=== PATIENT | female | born 1940 | race Caucasian/White ===

== ENCOUNTER 2017-11-14 11:05 | Emergency (ER) | payer MEDICARE, OTHER, SELFPAY ==
[2017-11-14 11:20] VITALS: BP 136/82; PULSE 80; RESP 18; TEMP 36.1; O2SAT 98; BMI 34.8
--- NOTE | 2017-11-14 11:43 | ED_ITS ---
HPI - Weakness General Chief complaint: Weakness Stated complaint: BACK PAIN, NAUSEA, EXHAUSTED Time Seen by Provider: 11/14/17 11:11 Source: patient Mode of arrival: ambulatory Limitations: no limitations History of Present Illness HPI Narrative: 77-year-old female who is in the area for a summer vacation here for evaluation of approximately 5 weeks of weakness and occasional bilateral upper back pain. Patient does have a history of breast cancer. Is not currently under chemotherapy or radiation. Has had a double mastectomy and a right-sided lymph node removal. She states that her last chemotherapy was several years ago. She states that she was also just recently diagnosed with melanoma on her right back. She states she has felt weak and fatigued in this occasional back pain for several weeks now. She states that she contacted her oncologist back in [place] who informed her that she could return back to [place] for evaluation or go to the emergency department here in the local area. Patient does not have an oncologist or a primary doctor in the local area. Related Data Home Medications Medication Instructions Recorded Confirmed alprazolam 1 dose PO DIRECTED 11/14/17 11/14/17 atorvastatin 20 mg PO DAILY 11/14/17 11/14/17 fluticasone-salmeterol [Advair 1 puff INHALATION BID 11/14/17 11/14/17 Diskus] levothyroxine 1 tab PO DAILY 11/14/17 11/14/17 pantoprazole 40 mg PO DAILY 11/14/17 11/14/17 theophylline 1 tab PO DAILY 11/14/17 11/14/17 Allergies Allergy/AdvReac Type Severity Reaction Status Date / Time No Known Drug Allergies Allergy Verified 11/14/17 11:20 Review of Systems Constitutional Denies chills, Reports fatigue, Denies fever(s), Denies headache(s), Reports lethargy, Reports malaise and Denies weakness ENT Ears, Nose, Mouth, and Throat: Denies vertigo, Denies dizziness, Denies headache (s) and Denies disequilibrium Cardiovascular Denies chest pain, Denies syncope, Denies dyspnea and Denies dyspnea on exertion Respiratory Denies chest congestion, Denies cough, Denies pain with cough, Denies dyspnea, Denies dyspnea on exertion and Denies wheezing Gastrointestinal Gastrointestinal: Denies constipation, Denies diarrhea, Denies nausea and Denies vomiting Genitourinary Denies dysuria Musculoskeletal Denies abnormal gait and Denies tingling Comments: Bilateral mid back pain that has occasional Integumentary/Breasts Denies lesions, Denies rash and Denies wounds Neurologic Denies abnormal gait, Denies behavioral changes, Denies confusion, Denies vertigo, Denies dizziness, Denies syncope, Denies headache(s), Denies sensory deficit, Denies tingling, Denies disequilibrium and Denies weakness Psychiatric Denies behavioral changes and Denies confusion Endocrine Reports fatigue Hematologic/Lymphatic Denies easy bleeding and Denies easy bruising Allergic/Immunologic Denies wheezing Exam Initial Vital Signs Initial Vital Signs: Vital Signs Temperature 97.0 F L 11/14/17 11:20 Pulse Rate 80 11/14/17 11:20 Respiratory Rate 18 11/14/17 11:20 Blood Pressure 136/82 H 11/14/17 11:20 Pulse Oximetry 98 11/14/17 11:20 Const General: cooperative, healthy appearing, comfortable, well developed, well groomed and No acute distress Orientation: alert, awake and oriented x3 [facility] Head: normal to inspection Ears: hearing grossly normal bilaterally Nose: external nose normal Resp Effort & Inspection: normal respiratory effort Auscultation: clear to auscultation bilaterally Cardio Rate: regular rate Rhythm: regular rhythm Back/Spine/Pelvis Other: Patient has no tenderness to her upper back today at the time of my exam. She states that it is occasional. Skin Lesions: no lesions Rashes: no rashes Neuro General: alert, awake and oriented x3 Cognition: normal cognition Speech: speech normal Gait: normal gait Motor: muscle tone normal throughout Sensory Exam: no sensory deficits noted Extrem General: normal to inspection and capillary refill normal Course Vital Signs - 8 hr 11/14/17 11:20 11/14/17 12:55 11/14/17 13:22 Temperature 97.0 F L Pulse Rate 80 56 L 55 L Respiratory Rate 18 18 16 Blood Pressure 136/82 H 128/60 H Blood Pressure [Left Arm] 140/62 H Pulse Oximetry 98 95 97 MDM - Weakness ECG Data Attestation: I personally reviewed and interpreted this ECG as follows: Prior ECG tracings: not available for review Interpretation: Sinus rhythm Ventricular rate is 61 Right bundle branch block Normal axis QRS 129 milliseconds Normal QTC No ST T wave changes MDM Narrative Medical decision making narrative: Had a long discussion with the patient and her who is at bedside regarding her symptoms. We did discuss that secondary to her history of breast cancer that she is at risk for recurrence of this and also metastasis. We did discuss that her back pain could be a sign of this finding. She denies any trauma. She has no skin changes that are consistent with zoster. No respiratory distress. Weight a long discussion regarding options that she had to include obtaining a CT scan here in the emergency department to evaluate for any lytic lesions or fractures which I feel is under likely in her situation. We also discussed that the better test would be either an MRI or a PET scan. We did discuss that unfortunately these test cannot be ordered out of the emergency department secondary to follow-up issues. I once again offered a CT scan for evaluation however after these discussion the patient opted to try the meloxicam that she had at home state this does not improve her symptoms. She also stated that she would contact her primary doctor and her oncologist in [place] to see if she could get testing set up while she is in the local area. She states she will be here for the next month or so. She was instructed that she could return to the emergency department any time for further evaluation treatment. Discharge Plan Departure Patient Disposition: Home, Self-Care Clinical Impression: Back pain, thoracic Discharge Date/Time: 11/14/17 13:25 Interventions: ED Discharge Assessment Last Done: 11/14/17 13:22 Instructions: DI for Thoracic Back Pain Activity Restrictions/Additional Instructions: We opted not to do a CT scan today. You do need to contact your primary doctor and your oncologist back in [place] to discuss further evaluation of your pain. I would recommend that you take the Mobic like we discussed. You may return to the emergency department at any time for new or worsening symptoms Prescriptions: No Action atorvastatin 20 mg tablet 20 mg PO DAILY RF: 0 theophylline 400 mg tablet extended release 24 hr 1 tab PO DAILY RF: 0 alprazolam 0.5 mg tablet 1 dose PO DIRECTED RF: 0 pantoprazole 40 mg tablet,delayed release (DR/EC) 40 mg PO DAILY RF: 0 levothyroxine 125 mcg tablet 1 tab PO DAILY RF: 0 fluticasone-salmeterol [Advair Diskus] 500-50 mcg/dose blister with device 1 puff Inhalation BID RF: 0
[2017-11-14 12:55] VITALS: BP 140/62; PULSE 56; RESP 18; O2SAT 95
[2017-11-14 13:22] VITALS: BP 128/60; PULSE 55; RESP 16; O2SAT 97
== END 2017-11-14 13:25 | disposition home or self-care (01) ==
PROVIDERS: Emergency Provider Emergency Medicine; Family Provider Internal Medicine Medical Oncology; PCP Internal Medicine Medical Oncology
DX: M54.6 Pain in thoracic spine (principal)
CPT/HCPCS: 81003; 93005; 99282; 99283

== ENCOUNTER → 2017-12-06 12:50 | Outpatient (CLI) | payer MEDICARE, OTHER, SELFPAY ==
--- NOTE | 2017-12-06 12:52 | DI.RAD.S_ITS ---
PROCEDURE: XR CHEST 2V INDICATIONS: shortness of breath TECHNIQUE: 2 views of the chest were acquired. COMPARISON: None. FINDINGS: Surgical changes and devices: None. Lungs and pleura: No pleural effusions or pneumothorax. Lungs are clear. Mediastinum: Mediastinal contours are normal. Heart size is normal. Bones and chest wall: No suspicious bony abnormalities. Soft tissues appear unremarkable. IMPRESSION: No acute process. Dictated by: Safia Washington M.D. on 12/06/2017 at 13:36 Approved by: Safia Washington M.D. on 12/06/2017 at 13:37
== END ==
PROVIDERS: Family Provider Internal Medicine Medical Oncology; PCP Internal Medicine Medical Oncology; Visit Provider Physician Assistant
DX: R06.02 Shortness of breath (principal); R06.2 Wheezing
CPT/HCPCS: 71046

== ENCOUNTER 2017-12-19 10:30 | Outpatient (RCR) | payer MEDICARE, OTHER, SELFPAY ==
--- NOTE | 2017-10-04 16:36 | PT.OIE ---
Current Diagnoses Lymphedema, not elsewhere classified (10/04/17) Stiffness of right shoulder, not elsewhere classified (10/04/17) Postural kyphosis, cervicothoracic region (10/04/17) Provider Visit Care Team Role Provider Type Amanda Mary MD Attending Provider Non-Staff Family Provider Primary Care Provider Specialty: Internal Medicine Address: [address] [place] [address], [id number] Email: Physical Therapy Initial Evaluation PT-OP-A Visit Information Start: 10/04/17 08:09 Freq: Status: Active Protocol: Document 10/04/17 15:57 SAK (Rec: 10/04/17 16:00 SAK [id number]) Out-Patient Physical Therapy Visit Information Visit Information Visit Type Initial Evaluation Visit Start Time 14:30 Visit Stop Time 15:45 Total Visit Minutes 75 Visit Number 06/10 Number of MACHINE CARTON MARKER Visits 0 Evaluation Information Evaluation Date 10/04/17 PT-OP-B Current Condition Start: 10/04/17 08:09 Freq: Status: Active Protocol: Document 10/04/17 14:30 SAK (Rec: 10/04/17 16:34 SAK [id number]) Current Condition History of Current Condition Onset Date 15 years Current Complaints exacerbation of lymphedema right UE History of Current Condition Patient 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 Reports gradual onset of lymphedema at that time, has had PT intervention in the past. Has compression sleeve for right. States she feels over the past year and most especially the past few days her right UE edema has increased significantly, UE feels very heavy making it even harder to use. No trauma or infection. Treatment Goals Patient/Caregiver Goals Decrease lymphedema to stable level, allow her to resume wearing usual compression sleeve without need for wrapping Prior Functional Status Baseline Function- ADL's Independent Baseline Function- Mobility Independent Current Functional Impairments (Reported) Functional Limitations- ADL's difficulty lifting UE overhead and behind her back, UE very heavy. Functional Limitations- Work/School doing less around the house. PT-OP-C Subjective Start: 10/04/17 08:09 Freq: Status: Active Protocol: Document 10/04/17 14:30 SAK (Rec: 10/04/17 16:34 SAK [id number]) Patient Questionnaires Lymphedema Life Impact Score Lymphedema Impairment 40 to 59% Impaired (Score 47- 60) OP-PT Pain Assessment Pain Assessment Grid Paper Pain Assessment Grid Completed Yes: no pain PT-OP-E Functional Tests Start: 10/04/17 08:09 Freq: Status: Active Protocol: Document 10/04/17 14:30 [facility] (Rec: 10/04/17 16:34 [facility] [id number]) Functional Tests Apley's Scratch Test Action 1: The subject is instructed to touch the opposite shoulder with his/her hand. This motion checks Glenohumeral adduction, internal rotation , horizontal adduction and scapular protraction Action 2: The subject is instructed to place his/her arm overhead and reach behind the neck to touch his/her upper back. This motion checks Glenohumeral abduction, external rotation and scapular upward rotation and elevation. Action 3: The subject puts his/her hand on the lower back and reaches upward as far as possible. This motion checks glenohumeral adduction, internal rotation and scapular retraction with downward rotation Action 1- Left behind shoulder Action 1- Right top of shoulder Action 2- Left T2 Action 2- Right C4 Action 3- Left T4 Action 3- Right T10 PT-OP-F Manual Assessment Start: 10/04/17 08:09 Freq: Status: Active Protocol: Document 10/04/17 14:30 [facility] (Rec: 10/04/17 16:34 [facility] [id number]) Manual Assessments Soft Tissue Assessment Soft Tissue Mobility Assessment Decreased soft tissue mobility of pec major and minor, lats on right PT-OP-J Posture/Palpation/Skin Start: 10/04/17 08:09 Freq: Status: Active Protocol: Document 10/04/17 14:30 [facility] (Rec: 10/04/17 16:34 [facility] [id number]) Skin Assessment Edema Assessment Right Arm Edema Degree 4+ Query Text:1+ Trace, Barely Detectable, Rebound Immediate 2+ Moderate, Slight Indentation, Rebound a few seconds 3+ Deep, Deeper Indentation, Rebound 10- 12 seconds 4+ Very Deep, Rebound > 20 seconds Edema Appearance Taut PT-OP-K Range of Motion Start: 10/04/17 08:09 Freq: Status: Active Protocol: Document 10/04/17 14:30 [facility] (Rec: 10/04/17 16:34 [facility] [id number]) Shoulder Goniometric Range of Motion Shoulder Measured in Degrees Right Flexion 135 Abduction 120 Left Flexion 165 Abduction 160 Shoulder ROM Limitations Shoulder ROM Limitations Soft Tissue Tightness Comments weight of right UE also limits elevation PT-OP-N Lymphedema Start: 10/04/17 08:09 Freq: Status: Active Protocol: Document 10/04/17 14:30 [facility] (Rec: 10/04/17 16:34 [facility] [id number]) Lymphedema Measurements Upper Extremity Circumference Measurements Left MCP 21.3 cm Wrist 18.4 cm 10 cm From Distal Crease 21.3 cm 20 cm From Distal Crease 27.7 cm 30 cm From Distal Crease 30.6 cm 40 cm From Distal Crease 38.1 cm 45 cm From Distal Crease 42.1 cm Right MCP 22.1 cm Wrist 18.4 cm 10 cm From Distal Crease 31.1 cm 20 cm From Distal Crease 34.3 cm 30 cm From Distal Crease 43.2 cm 40 cm From Distal Crease 41.3 cm 45 cm From Distal Crease 48.5 cm PT-OP-Q Treatments Start: 10/04/17 08:09 Freq: Status: Active Protocol: Document 10/04/17 14:30 [facility] (Rec: 10/04/17 16:34 [facility] [id number]) Cardio Equipment Upper Body Ergometer (UBE) Duration (Minutes) 5 RPM 120 Other forward,bckward; after lymphedema wrapping to facilitate lymph drainage Therapeutic Exercises Sidelying Exercises 1 Sidelying Exercise Name reach and roll Side bilateral Reps/Minutes 5 Self-Care/Home Management Treatment Education Patient Education Home Exercise Program Lymphedema Treatment Manual Lymphatic Drainage Location right UE Duration 20 Comments supine and s/l Sequential Lymphedema Exercises Location right UE Comments verbal review with instruction to perform sequential prox to distal, then distal to proximal (reports has never been told to do it this way) Patient Education Self Manual Lymphatic Drainage review Sequential Lymphedema Exercises review PT-OP-T Assessment and Plan Start: 10/04/17 08:09 Freq: Status: Active Protocol: Document 10/04/17 14:30 [facility] (Rec: 10/04/17 16:34 [facility] [id number]) Physical Therapy Assessment Rehab Potential Rehabilitation Potential Good Evaluation Complexity Number of Personal Factors/Comorbidities 3 or More Number of Body Systems Impaired 3 Clinical Presentation at Evaluation Unstable Impairments Impairments Edema Functional Activities Soft Tissue Mobility Goals Four Impairment edema Short Term Goal (STG) pneumatic pump trial STG Duration 6 wks Alf Goal (LTG) Patient to consider obtaining pneumatic pump such as Flexitouch for home lymphedema management if pump trial helpful Three Impairment soft tissue mobility Short Term Goal (STG) Improve mobility and flexibility of pec major and minor and latissiumus dorsi right to allow improved lymphatic flow STG Duration 6 wks Alf Goal (LTG) Patient to be independent with updated HEP for purposes of of flexibility and soft tissue mobility Two Impairment range of motion Short Term Goal (STG) Improve right shoulder flex to 145 and abd to 140 STG Duration 6 wks Alf Goal (LTG) Patient to resume ability to reach fully overhead and behind her back for purposes of ADL's and usual activities. One Impairment edema Short Term Goal (STG) Decrease edema sufficient to allow patient to resume wearing her current compression garment consistently without difficulty STG Duration 6 wks Domestic Violence Advocate Goal (LTG) Patient to demonstrate independence with self MLD, sequential lymphedema exercises, and have appropriate fitting compression garments for long- term lymphedema management. LTG Duration 12 wks Assessment Summary Assessment Patient presents with exacerbation of lymphedema over past year, worst over past 3 days. No signs or symptoms of infection. May be at least partially due to lower activity level and worsening of postural alignment due to recent medical issues. Would benefit from PT to address PT for lymphedema management as outlined in goals to decrease her edema, improve her ability to perform ADL's and improve her overall quality of life. Physical Therapy Plan Frequency and Duration Frequency of Treatment 2x/Week Duration of Treatment 12 wks Plan of Care Start Date 10/04/17 Plan of Care End Date 01/01/18 Therapeutic Interventions Therapeutic Interventions Aquatic Therapy Home Exercise Program Lymphedema Management Manual Therapy Self-Care/Home Management Therapeutic Exercises Next Visit Focus/Plan Next Visit Plan MLD, compression wrapping, further exercise progression including addition of pulleys for shoulder ROM. Provider Signature Date
--- NOTE | 2017-10-11 16:39 | PT.OTN ---
Current Diagnoses Lymphedema, not elsewhere classified (10/11/17) Stiffness of right shoulder, not elsewhere classified (10/11/17) Physical Therapy Treatment Note PT-OP-A Visit Information Start: 10/04/17 08:09 Freq: Status: Active Protocol: Document 10/11/17 14:30 SAK (Rec: 10/11/17 16:39 SAK [id number]) Out-Patient Physical Therapy Visit Information Visit Information Visit Type Treatment Note Visit Start Time 14:30 Visit Stop Time 15:50 Total Visit Minutes 80 Visit Number 2/ Number of INSTITUTION LIBRARIAN Visits 0 Evaluation Information Evaluation Date 10/04/17 PT-OP-B Current Condition Start: 10/04/17 08:09 Freq: Status: Active Protocol: Document 10/04/17 14:30 SAK (Rec: 10/04/17 16:34 SAK [id number]) Current Condition History of Current Condition Onset Date 15 years Current Complaints exacerbation of lymphedema right UE History of Current Condition Patient 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 Reports gradual onset of lymphedema at that time, has had PT intervention in the past. Has compression sleeve for right. States she feels over the past year and most especially the past few days her right UE edema has increased significantly, UE feels very heavy making it even harder to use. No trauma or infection. Treatment Goals Patient/Caregiver Goals Decrease lymphedema to stable level, allow her to resume wearing usual compression sleeve without need for wrapping Prior Functional Status Baseline Function- ADL's Independent Baseline Function- Mobility Independent Current Functional Impairments (Reported) Functional Limitations- ADL's difficulty lifting UE overhead and behind her back, UE very heavy. Functional Limitations- Work/School doing less around the house. PT-OP-C Subjective Start: 10/04/17 08:09 Freq: Status: Active Protocol: Document 10/11/17 14:30 SAK (Rec: 10/11/17 16:37 SAK [id number]) OP-PT Subjective Patient Comments Patient Comments Reports very pleased with results following first treatment; wore compression wrap for 4 days then resumed wearing compression sleeve. States she felt edema was decreased a lot with compression wrap, has increased some since but still better. PT-OP-E Functional Tests Start: 10/04/17 08:09 Freq: Status: Active Protocol: Document 10/04/17 14:30 [facility] (Rec: 10/04/17 16:34 [facility] [id number]) Functional Tests Apley's Scratch Test Action 1: The subject is instructed to touch the opposite shoulder with his/her hand. This motion checks Glenohumeral adduction, internal rotation , horizontal adduction and scapular protraction Action 2: The subject is instructed to place his/her arm overhead and reach behind the neck to touch his/her upper back. This motion checks Glenohumeral abduction, external rotation and scapular upward rotation and elevation. Action 3: The subject puts his/her hand on the lower back and reaches upward as far as possible. This motion checks glenohumeral adduction, internal rotation and scapular retraction with downward rotation Action 1- Left behind shoulder Action 1- Right top of shoulder Action 2- Left T2 Action 2- Right C4 Action 3- Left T4 Action 3- Right T10 PT-OP-F Manual Assessment Start: 10/04/17 08:09 Freq: Status: Active Protocol: Document 10/04/17 14:30 [facility] (Rec: 10/04/17 16:34 [facility] [id number]) Manual Assessments Soft Tissue Assessment Soft Tissue Mobility Assessment Decreased soft tissue mobility of pec major and minor, lats on right PT-OP-J Posture/Palpation/Skin Start: 10/04/17 08:09 Freq: Status: Active Protocol: Document 10/04/17 14:30 [facility] (Rec: 10/04/17 16:34 [facility] [id number]) Skin Assessment Edema Assessment Right Arm Edema Degree 4+ Query Text:1+ Trace, Barely Detectable, Rebound Immediate 2+ Moderate, Slight Indentation, Rebound a few seconds 3+ Deep, Deeper Indentation, Rebound 10- 12 seconds 4+ Very Deep, Rebound > 20 seconds Edema Appearance Taut PT-OP-K Range of Motion Start: 10/04/17 08:09 Freq: Status: Active Protocol: Document 10/04/17 14:30 [facility] (Rec: 10/04/17 16:34 [facility] [id number]) Shoulder Goniometric Range of Motion Shoulder Measured in Degrees Right Flexion 135 Abduction 120 Left Flexion 165 Abduction 160 Shoulder ROM Limitations Shoulder ROM Limitations Soft Tissue Tightness Comments weight of right UE also limits elevation PT-OP-N Lymphedema Start: 10/04/17 08:09 Freq: Status: Active Protocol: Document 10/11/17 14:30 [facility] (Rec: 10/11/17 16:37 [facility] [id number]) Lymphedema Measurements Upper Extremity Circumference Measurements Right MCP 22.1 cm Wrist 18.5 cm 10 cm From Distal Crease 24.5 cm 20 cm From Distal Crease 31.7 cm 30 cm From Distal Crease 42 cm 40 cm From Distal Crease 41.3 cm 45 cm From Distal Crease 44 cm PT-OP-Q Treatments Start: 10/04/17 08:09 Freq: Status: Active Protocol: Document 10/11/17 14:30 [facility] (Rec: 10/11/17 16:37 [facility] [id number]) Cardio Equipment Recumbent Elliptical (RIVS) Duration (Minutes) 10 Resistance 1 Other to facilitate lymphatic flow after compression wrapping Manual Therapy Treatment Other Other Manual Treatments circumferential measurements and discussion of results 10min Lymphedema Treatment Manual Lymphatic Drainage Location right UE Duration 60 Comments supine and s/l. Seated compression wrapping with Artiflex and Comprilan hand to axilla. PT-OP-T Assessment and Plan Start: 10/04/17 08:09 Freq: Status: Active Protocol: Document 10/11/17 14:30 [facility] (Rec: 10/11/17 16:37 [facility] [id number]) Physical Therapy Assessment Assessment Summary Assessment Excellent progress with decrease in circumferential measurements from ( see measurements). Patient highly compliant with HEP and wearing compression garment. Physical Therapy Plan Frequency and Duration Frequency of Treatment 2x/Week Duration of Treatment 12 wks Plan of Care Start Date 10/04/17 Plan of Care End Date 01/01/18 Therapeutic Interventions Therapeutic Interventions Aquatic Therapy Home Exercise Program Lymphedema Management Manual Therapy Self-Care/Home Management Therapeutic Exercises Next Visit Focus/Plan Next Visit Plan MLD, compression wrapping, further exercise progression including addition of pulleys for shoulder ROM. Please Sign and Return: I have reviewed this Plan of Care and certify that the skilled therapy services above are required to meet the patient???s needs. Physician Signature Date Printed Name and Credentials Clinical Instructor Signature Printed Name and Credentials
--- NOTE | 2017-12-12 11:41 | PT.OTN ---
Current Diagnoses Lymphedema, not elsewhere classified (12/12/17) Stiffness of right shoulder, not elsewhere classified (12/12/17) Physical Therapy Treatment Note PT-OP-A Visit Information Start: 10/04/17 08:09 Freq: Status: Active Protocol: Document 12/12/17 11:32 SAK (Rec: 12/12/17 11:40 SAK [id number]) Out-Patient Physical Therapy Visit Information Visit Information Visit Type Treatment Note Visit Start Time 10:30 Visit Stop Time 11:30 Total Visit Minutes 60 Visit Number 08/08 Number of REPTILE FARMER Visits 0 Evaluation Information Evaluation Date 10/04/17 PT-OP-B Current Condition Start: 10/04/17 08:09 Freq: Status: Active Protocol: Document 10/04/17 14:30 SAK (Rec: 10/04/17 16:34 SAK [id number]) Current Condition History of Current Condition Onset Date 15 years Current Complaints exacerbation of lymphedema right UE History of Current Condition Patient 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 Reports gradual onset of lymphedema at that time, has had PT intervention in the past. Has compression sleeve for right. States she feels over the past year and most especially the past few days her right UE edema has increased significantly, UE feels very heavy making it even harder to use. No trauma or infection. Treatment Goals Patient/Caregiver Goals Decrease lymphedema to stable level, allow her to resume wearing usual compression sleeve without need for wrapping Prior Functional Status Baseline Function- ADL's Independent Baseline Function- Mobility Independent Current Functional Impairments (Reported) Functional Limitations- ADL's difficulty lifting UE overhead and behind her back, UE very heavy. Functional Limitations- Work/School doing less around the house. PT-OP-C Subjective Start: 10/04/17 08:09 Freq: Status: Active Protocol: Document 12/12/17 11:32 SAK (Rec: 12/12/17 11:40 [facility] [id number]) OP-PT Subjective Patient Comments Patient Comments Patient reports she has been ill for a few weeks. Also was diagnosed with melanoma and had it removed off of her back ; no further treatment at this time. Has worked really hard on decreasing the salt in her diet and has found that it helps with her arm as well. Patient Reported Progress Improving PT-OP-E Functional Tests Start: 10/04/17 08:09 Freq: Status: Active Protocol: Document 10/04/17 14:30 [facility] (Rec: 10/04/17 16:34 [facility] [id number]) Functional Tests Apley's Scratch Test Action 1: The subject is instructed to touch the opposite shoulder with his/her hand. This motion checks Glenohumeral adduction, internal rotation , horizontal adduction and scapular protraction Action 2: The subject is instructed to place his/her arm overhead and reach behind the neck to touch his/her upper back. This motion checks Glenohumeral abduction, external rotation and scapular upward rotation and elevation. Action 3: The subject puts his/her hand on the lower back and reaches upward as far as possible. This motion checks glenohumeral adduction, internal rotation and scapular retraction with downward rotation Action 1- Left behind shoulder Action 1- Right top of shoulder Action 2- Left T2 Action 2- Right C4 Action 3- Left T4 Action 3- Right T10 PT-OP-F Manual Assessment Start: 10/04/17 08:09 Freq: Status: Active Protocol: Document 10/04/17 14:30 [facility] (Rec: 10/04/17 16:34 [facility] [id number]) Manual Assessments Soft Tissue Assessment Soft Tissue Mobility Assessment Decreased soft tissue mobility of pec major and minor, lats on right PT-OP-J Posture/Palpation/Skin Start: 10/04/17 08:09 Freq: Status: Active Protocol: Document 10/04/17 14:30 [facility] (Rec: 10/04/17 16:34 [facility] [id number]) Skin Assessment Edema Assessment Right Arm Edema Degree 4+ Edema Appearance Taut PT-OP-K Range of Motion Start: 10/04/17 08:09 Freq: Status: Active Protocol: Document 10/04/17 14:30 [facility] (Rec: 10/04/17 16:34 [facility] [id number]) Shoulder Goniometric Range of Motion Shoulder Measured in Degrees Right Flexion 135 Abduction 120 Left Flexion 165 Abduction 160 Shoulder ROM Limitations Shoulder ROM Limitations Soft Tissue Tightness Comments weight of right UE also limits elevation PT-OP-N Lymphedema Start: 10/04/17 08:09 Freq: Status: Active Protocol: Document 12/12/17 11:32 SAK (Rec: 12/12/17 11:40 [facility] [id number]) Lymphedema Measurements Upper Extremity Circumference Measurements Right MCP 21.1 cm Wrist 17.9 cm 10 cm From Distal Crease 24.3 cm 20 cm From Distal Crease 31.5 cm 30 cm From Distal Crease 39.5 cm 40 cm From Distal Crease 41 cm 45 cm From Distal Crease 43.6 cm PT-OP-Q Treatments Start: 10/04/17 08:09 Freq: Status: Active Protocol: Document 12/12/17 11:32 [facility] (Rec: 12/12/17 11:40 [facility] [id number]) Lymphedema Treatment Manual Lymphatic Drainage Location right UE Duration 60 Comments supine and s/l. Seated compression wrapping with BiaSoft extremity padding and Comprilan hand to axilla. PT-OP-T Assessment and Plan Start: 10/04/17 08:09 Freq: Status: Active Protocol: Document 12/12/17 11:32 [facility] (Rec: 12/12/17 11:40 [facility] [id number]) Physical Therapy Assessment Goals Four Impairment edema Short Term Goal (STG) pneumatic pump trial STG Duration 6 wks Power Plant Installer Goal (LTG) Patient to consider obtaining pneumatic pump such as Flexitouch for home lymphedema management if pump trial helpful Three Impairment soft tissue mobility Short Term Goal (STG) Improve mobility and flexibility of pec major and minor and latissiumus dorsi right to allow improved lymphatic flow STG Duration 6 wks Half-Way Goal (LTG) Patient to be independent with updated HEP for purposes of of flexibility and soft tissue mobility Two Impairment range of motion Short Term Goal (STG) Improve right shoulder flex to 145 and abd to 140 STG Duration 6 wks Power Plant Installer Goal (LTG) Patient to resume ability to reach fully overhead and behind her back for purposes of ADL's and usual activities. One Impairment edema Short Term Goal (STG) Decrease edema sufficient to allow patient to resume wearing her current compression garment consistently without difficulty STG Duration 6 wks Half-Way Goal (LTG) Patient to demonstrate independence with self MLD, sequential lymphedema exercises, and have appropriate fitting compression garments for long- term lymphedema management. LTG Duration 12 wks Progress Towards Goals Progress Towards Goals Progressing Toward Goals Progress Comments No ther ex today due to physician recommendation after melanoma removal. Assessment Summary Assessment continues to progress with decrease in circumferential measurements. Physical Therapy Plan Therapeutic Interventions Therapeutic Interventions Aquatic Therapy Home Exercise Program Lymphedema Management Manual Therapy Self-Care/Home Management Therapeutic Exercises Next Visit Focus/Plan Next Visit Plan Anticipating 1 further PT visit due to feeling patient stabilizing; will discuss at next session if we feel further visits indicated.
--- NOTE | 2017-12-15 12:34 | PT.OTN ---
Current Diagnoses Lymphedema, not elsewhere classified (12/15/17) Stiffness of right shoulder, not elsewhere classified (12/15/17) Physical Therapy Treatment Note PT-OP-A Visit Information Start: 10/04/17 08:09 Freq: Status: Active Protocol: Document 12/15/17 12:28 GGD (Rec: 12/15/17 12:33 GGD [id number]) Out-Patient Physical Therapy Visit Information Visit Information Visit Type Treatment Note Visit Start Time 11:15 Visit Stop Time 12:15 Total Visit Minutes 60 Visit Number 09/08 Number of SCHOOL EXAMINER Visits 1 Evaluation Information Evaluation Date 10/04/17 PT-OP-B Current Condition Start: 10/04/17 08:09 Freq: Status: Active Protocol: Document 10/04/17 14:30 SAK (Rec: 10/04/17 16:34 SAK [id number]) Current Condition History of Current Condition Onset Date 15 years Current Complaints exacerbation of lymphedema right UE History of Current Condition Patient 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 Reports gradual onset of lymphedema at that time, has had PT intervention in the past. Has compression sleeve for right. States she feels over the past year and most especially the past few days her right UE edema has increased significantly, UE feels very heavy making it even harder to use. No trauma or infection. Treatment Goals Patient/Caregiver Goals Decrease lymphedema to stable level, allow her to resume wearing usual compression sleeve without need for wrapping Prior Functional Status Baseline Function- ADL's Independent Baseline Function- Mobility Independent Current Functional Impairments (Reported) Functional Limitations- ADL's difficulty lifting UE overhead and behind her back, UE very heavy. Functional Limitations- Work/School doing less around the house. PT-OP-C Subjective Start: 10/04/17 08:09 Freq: Status: Active Protocol: Document 12/15/17 12:28 GGD (Rec: 12/15/17 12:33 GGD [id number]) OP-PT Subjective Patient Comments Patient Comments Pt states she feels she doing better overall. PT-OP-E Functional Tests Start: 10/04/17 08:09 Freq: Status: Active Protocol: Document 10/04/17 14:30 SAK (Rec: 10/04/17 16:34 SAK [id number]) Functional Tests Apley's Scratch Test Action 1: The subject is instructed to touch the opposite shoulder with his/her hand. This motion checks Glenohumeral adduction, internal rotation , horizontal adduction and scapular protraction Action 2: The subject is instructed to place his/her arm overhead and reach behind the neck to touch his/her upper back. This motion checks Glenohumeral abduction, external rotation and scapular upward rotation and elevation. Action 3: The subject puts his/her hand on the lower back and reaches upward as far as possible. This motion checks glenohumeral adduction, internal rotation and scapular retraction with downward rotation Action 1- Left behind shoulder Action 1- Right top of shoulder Action 2- Left T2 Action 2- Right C4 Action 3- Left T4 Action 3- Right T10 PT-OP-F Manual Assessment Start: 10/04/17 08:09 Freq: Status: Active Protocol: Document 10/04/17 14:30 SAK (Rec: 10/04/17 16:34 [facility] [id number]) Manual Assessments Soft Tissue Assessment Soft Tissue Mobility Assessment Decreased soft tissue mobility of pec major and minor, lats on right PT-OP-J Posture/Palpation/Skin Start: 10/04/17 08:09 Freq: Status: Active Protocol: Document 10/04/17 14:30 SAK (Rec: 10/04/17 16:34 [facility] [id number]) Skin Assessment Edema Assessment Right Arm Edema Degree 4+ Edema Appearance Taut PT-OP-K Range of Motion Start: 10/04/17 08:09 Freq: Status: Active Protocol: Document 10/04/17 14:30 SAK (Rec: 10/04/17 16:34 SAK [id number]) Shoulder Goniometric Range of Motion Shoulder Measured in Degrees Right Flexion 135 Abduction 120 Left Flexion 165 Abduction 160 Shoulder ROM Limitations Shoulder ROM Limitations Soft Tissue Tightness Comments weight of right UE also limits elevation PT-OP-N Lymphedema Start: 10/04/17 08:09 Freq: Status: Active Protocol: Document 12/15/17 12:28 GGD (Rec: 12/15/17 12:33 GGD [id number]) Lymphedema Measurements Upper Extremity Circumference Measurements Right MCP 21.1 cm Wrist 17.4 cm 10 cm From Distal Crease 25.1 cm 20 cm From Distal Crease 31.3 cm 30 cm From Distal Crease 40.1 cm 40 cm From Distal Crease 41.3 cm 45 cm From Distal Crease 43.1 cm PT-OP-Q Treatments Start: 10/04/17 08:09 Freq: Status: Active Protocol: Document 12/15/17 12:28 GGD (Rec: 12/15/17 12:33 GGD [id number]) Lymphedema Treatment Manual Lymphatic Drainage Location right UE Duration 60 Comments supine and s/l. Seated compression wrapping with BiaSoft extremity padding and Comprilan hand to axilla. PT-OP-T Assessment and Plan Start: 10/04/17 08:09 Freq: Status: Active Protocol: Document 12/15/17 12:28 GGD (Rec: 12/15/17 12:33 GGD [email or web address]) Physical Therapy Assessment Assessment Summary Assessment Pt progressing with dircumferential measurements and nearing stabilizing Physical Therapy Plan Frequency and Duration Frequency of Treatment 2x/Week Duration of Treatment 12 wks Plan of Care Start Date 10/04/17 Plan of Care End Date 01/01/18 Therapeutic Interventions Therapeutic Interventions Aquatic Therapy Home Exercise Program Lymphedema Management Manual Therapy Self-Care/Home Management Therapeutic Exercises Next Visit Focus/Plan Next Note Type Discharge Summary Next Visit Plan PT would like one more visit to see primary PT.
--- NOTE | 2017-12-19 11:32 | PT.OTN ---
Current Diagnoses Lymphedema, not elsewhere classified (12/19/17) Stiffness of right shoulder, not elsewhere classified (12/19/17) Physical Therapy Treatment Note PT-OP-A Visit Information Start: 10/04/17 08:09 Freq: Status: Active Protocol: Document 12/19/17 10:30 SAK (Rec: 12/19/17 11:31 [facility] [id number]) Out-Patient Physical Therapy Visit Information Visit Information Visit Type Treatment Note Visit Start Time 10:30 Visit Stop Time 11:15 Total Visit Minutes 45 Visit Number 5/20 Number of MANUFACTURING EXECUTIVE Visits 0 Evaluation Information Evaluation Date 10/04/17 PT-OP-B Current Condition Start: 10/04/17 08:09 Freq: Status: Active Protocol: Document 10/04/17 14:30 SAK (Rec: 10/04/17 16:34 SAK [id number]) Current Condition History of Current Condition Onset Date 15 years Current Complaints exacerbation of lymphedema right UE History of Current Condition Patient 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 Reports gradual onset of lymphedema at that time, has had PT intervention in the past. Has compression sleeve for right. States she feels over the past year and most especially the past few days her right UE edema has increased significantly, UE feels very heavy making it even harder to use. No trauma or infection. Treatment Goals Patient/Caregiver Goals Decrease lymphedema to stable level, allow her to resume wearing usual compression sleeve without need for wrapping Prior Functional Status Baseline Function- ADL's Independent Baseline Function- Mobility Independent Current Functional Impairments (Reported) Functional Limitations- ADL's difficulty lifting UE overhead and behind her back, UE very heavy. Functional Limitations- Work/School doing less around the house. PT-OP-C Subjective Start: 10/04/17 08:09 Freq: Status: Active Protocol: Document 12/19/17 10:30 SAK (Rec: 12/19/17 11:31 SAK [id number]) OP-PT Subjective Patient Comments Patient Comments Pt states she feels she doing better overall, stable circumferential measurements. Ready for discharge from PT at this time. Patient Questionnaires Lymphedema Life Impact Score Lymphedema Impairment 1 to 19% Impaired (Score 19-32 ) PT-OP-E Functional Tests Start: 10/04/17 08:09 Freq: Status: Active Protocol: Document 10/04/17 14:30 [facility] (Rec: 10/04/17 16:34 [facility] [id number]) Functional Tests Apley's Scratch Test Action 1: The subject is instructed to touch the opposite shoulder with his/her hand. This motion checks Glenohumeral adduction, internal rotation , horizontal adduction and scapular protraction Action 2: The subject is instructed to place his/her arm overhead and reach behind the neck to touch his/her upper back. This motion checks Glenohumeral abduction, external rotation and scapular upward rotation and elevation. Action 3: The subject puts his/her hand on the lower back and reaches upward as far as possible. This motion checks glenohumeral adduction, internal rotation and scapular retraction with downward rotation Action 1- Left behind shoulder Action 1- Right top of shoulder Action 2- Left T2 Action 2- Right C4 Action 3- Left T4 Action 3- Right T10 PT-OP-F Manual Assessment Start: 10/04/17 08:09 Freq: Status: Active Protocol: Document 10/04/17 14:30 [facility] (Rec: 10/04/17 16:34 [facility] [id number]) Manual Assessments Soft Tissue Assessment Soft Tissue Mobility Assessment Decreased soft tissue mobility of pec major and minor, lats on right PT-OP-J Posture/Palpation/Skin Start: 10/04/17 08:09 Freq: Status: Active Protocol: Document 10/04/17 14:30 [facility] (Rec: 10/04/17 16:34 [facility] [id number]) Skin Assessment Edema Assessment Right Arm Edema Degree 4+ Edema Appearance Taut PT-OP-K Range of Motion Start: 10/04/17 08:09 Freq: Status: Active Protocol: Document 10/04/17 14:30 [facility] (Rec: 10/04/17 16:34 [facility] [id number]) Shoulder Goniometric Range of Motion Shoulder Measured in Degrees Right Flexion 135 Abduction 120 Left Flexion 165 Abduction 160 Shoulder ROM Limitations Shoulder ROM Limitations Soft Tissue Tightness Comments weight of right UE also limits elevation PT-OP-N Lymphedema Start: 10/04/17 08:09 Freq: Status: Active Protocol: Document 12/19/17 10:30 SAK (Rec: 12/19/17 11:32 [facility] [id number]) Lymphedema Measurements Upper Extremity Circumference Measurements Right MCP 21.1 cm Wrist 17.4 cm 10 cm From Distal Crease 25.1 cm 20 cm From Distal Crease 31.3 cm 30 cm From Distal Crease 40.1 cm 40 cm From Distal Crease 41.3 cm 45 cm From Distal Crease 43.1 cm PT-OP-Q Treatments Start: 10/04/17 08:09 Freq: Status: Active Protocol: Document 12/19/17 10:30 [facility] (Rec: 12/19/17 11:31 [facility] [id number]) Cardio Equipment Recumbent Elliptical (Biodex) Other refused due to time constraints Therapeutic Exercises Sidelying Exercises 2 Sidelying Exercise Name shoulder abduction Reps/Minutes 10 1 Sidelying Exercise Name reach and roll Side bilateral Reps/Minutes 5 Lymphedema Treatment Manual Lymphatic Drainage Location right UE Duration 45 Comments MLD only. Reapplied compression sleeve. PT-OP-T Assessment and Plan Start: 10/04/17 08:09 Freq: Status: Active Protocol: Document 12/19/17 10:30 [facility] (Rec: 12/19/17 11:31 [facility] [id number]) Physical Therapy Assessment Goals Four LTG Duration Not done Three Impairment soft tissue mobility Short Term Goal (STG) Improve mobility and flexibility of pec major and minor and latissiumus dorsi right to allow improved lymphatic flow STG Duration 6 wks Mcfp Goal (LTG) Patient to be independent with updated HEP for purposes of of flexibility and soft tissue mobility (achieved) Two Impairment range of motion Short Term Goal (STG) Improve right shoulder flex to 145 and abd to 140 STG Duration 6 wks Supplier Manager Goal (LTG) Patient to resume ability to reach fully overhead and behind her back for purposes of ADL's and usual activities. (achieved) One Impairment edema Short Term Goal (STG) Decrease edema sufficient to allow patient to resume wearing her current compression garment consistently without difficulty STG Duration 6 wks Mcfp Goal (LTG) Patient to demonstrate independence with self MLD, sequential lymphedema exercises, and have appropriate fitting compression garments for long- term lymphedema management. ( achieved) LTG Duration 12 wks Assessment Summary Assessment Stable circumferential measurements. Ready for discharge Physical Therapy Plan Therapeutic Interventions Other Therapeutic Interventions N/A Discharge Physical Therapy Discharge Reasons Goals Met Discharge Comments Patient leaving town for 6 weeks.
--- NOTE | 2017-12-19 12:00 | PT.OPDS ---
Current Diagnoses Lymphedema, not elsewhere classified (12/19/17) Stiffness of right shoulder, not elsewhere classified (12/19/17) Provider Visit Care Team Role Provider Type Amanda Mary MD Attending Provider Non-Staff Family Provider Primary Care Provider Specialty: Internal Medicine Address: [address] [place] [address], [phone] Email: Visit Number Visit Number 10/08 Discharge Summary PT-OP-B Current Condition Start: 10/04/17 08:09 Freq: Status: Active Protocol: Document 10/04/17 14:30 [facility]AK (Rec: 10/04/17 16:34 [facility] [id number]) Current Condition History of Current Condition Onset Date 15 years Current Complaints exacerbation of lymphedema right UE History of Current Condition Patient 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 Reports gradual onset of lymphedema at that time, has had PT intervention in the past. Has compression sleeve for right. States she feels over the past year and most especially the past few days her right UE edema has increased significantly, UE feels very heavy making it even harder to use. No trauma or infection. Treatment Goals Patient/Caregiver Goals Decrease lymphedema to stable level, allow her to resume wearing usual compression sleeve without need for wrapping Prior Functional Status Baseline Function- ADL's Independent Baseline Function- Mobility Independent Current Functional Impairments (Reported) Functional Limitations- ADL's difficulty lifting UE overhead and behind her back, UE very heavy. Functional Limitations- Work/School doing less around the house. PT-OP-C Subjective Start: 10/04/17 08:09 Freq: Status: Active Protocol: Document 12/19/17 10:30 SAK (Rec: 12/19/17 11:31 [facility] [id number]) OP-PT Subjective Patient Comments Patient Comments Pt states she feels she doing better overall, stable circumferential measurements. Ready for discharge from PT at this time. Patient Questionnaires Lymphedema Life Impact Score Lymphedema Impairment 1 to 19% Impaired (Score 19-32 ) PT-OP-E Functional Tests Start: 10/04/17 08:09 Freq: Status: Active Protocol: Document 10/04/17 14:30 SAK (Rec: 10/04/17 16:34 S[facility] [id number]) Functional Tests Apley's Scratch Test Action 1: The subject is instructed to touch the opposite shoulder with his/her hand. This motion checks Glenohumeral adduction, internal rotation , horizontal adduction and scapular protraction Action 2: The subject is instructed to place his/her arm overhead and reach behind the neck to touch his/her upper back. This motion checks Glenohumeral abduction, external rotation and scapular upward rotation and elevation. Action 3: The subject puts his/her hand on the lower back and reaches upward as far as possible. This motion checks glenohumeral adduction, internal rotation and scapular retraction with downward rotation Action 1- Left behind shoulder Action 1- Right top of shoulder Action 2- Left T2 Action 2- Right C4 Action 3- Left T4 Action 3- Right T10 PT-OP-F Manual Assessment Start: 10/04/17 08:09 Freq: Status: Active Protocol: Document 10/04/17 14:30 [facility] (Rec: 10/04/17 16:34 [facility] [id number]) Manual Assessments Soft Tissue Assessment Soft Tissue Mobility Assessment Decreased soft tissue mobility of pec major and minor, lats on right PT-OP-J Posture/Palpation/Skin Start: 10/04/17 08:09 Freq: Status: Active Protocol: Document 10/04/17 14:30 [facility] (Rec: 10/04/17 16:34 [facility] [id number]) Skin Assessment Edema Assessment Right Arm Edema Degree 4+ Edema Appearance Taut PT-OP-K Range of Motion Start: 10/04/17 08:09 Freq: Status: Active Protocol: Document 10/04/17 14:30 [facility] (Rec: 10/04/17 16:34 [facility] [id number]) Shoulder Goniometric Range of Motion Shoulder Measured in Degrees Right Flexion 135 Abduction 120 Left Flexion 165 Abduction 160 Shoulder ROM Limitations Shoulder ROM Limitations Soft Tissue Tightness Comments weight of right UE also limits elevation PT-OP-N Lymphedema Start: 10/04/17 08:09 Freq: Status: Active Protocol: Document 12/19/17 10:30 [facility] (Rec: 12/19/17 11:32 [facility] [id number]) Lymphedema Measurements Upper Extremity Circumference Measurements Right MCP 21.1 cm Wrist 17.4 cm 10 cm From Distal Crease 25.1 cm 20 cm From Distal Crease 31.3 cm 30 cm From Distal Crease 40.1 cm 40 cm From Distal Crease 41.3 cm 45 cm From Distal Crease 43.1 cm PT-OP-T Assessment and Plan Start: 10/04/17 08:09 Freq: Status: Active Protocol: Document 12/19/17 10:30 [facility] (Rec: 12/19/17 11:31 [facility] [id number]) Physical Therapy Assessment Goals Four LTG Duration Not done Three Impairment soft tissue mobility Short Term Goal (STG) Improve mobility and flexibility of pec major and minor and latissiumus dorsi right to allow improved lymphatic flow STG Duration 6 wks Usp Goal (LTG) Patient to be independent with updated HEP for purposes of of flexibility and soft tissue mobility (achieved) Two Impairment range of motion Short Term Goal (STG) Improve right shoulder flex to 145 and abd to 140 STG Duration 6 wks Usp Goal (LTG) Patient to resume ability to reach fully overhead and behind her back for purposes of ADL's and usual activities. (achieved) One Impairment edema Short Term Goal (STG) Decrease edema sufficient to allow patient to resume wearing her current compression garment consistently without difficulty STG Duration 6 wks Mill Operator Helper Goal (LTG) Patient to demonstrate independence with self MLD, sequential lymphedema exercises, and have appropriate fitting compression garments for long- term lymphedema management. ( achieved) LTG Duration 12 wks Assessment Summary Assessment Stable circumferential measurements. Ready for discharge Physical Therapy Plan Therapeutic Interventions Other Therapeutic Interventions N/A Discharge Physical Therapy Discharge Reasons Goals Met Discharge Comments Patient leaving [facility] for 6 weeks.
== END 2018-03-02 10:42 ==
LOC: PHYS 10:30
PROVIDERS: Family Provider Internal Medicine Medical Oncology; PCP Internal Medicine Medical Oncology; Visit Provider Internal Medicine Medical Oncology
DX: M25.611 Stiffness of right shoulder, not elsewhere classified (principal); I89.0 Lymphedema, not elsewhere classified
CPT/HCPCS: 97110; 97140; 97162; 97535

== ENCOUNTER 2020-09-21 09:15 | Emergency (ER) | payer MEDICARE, SELFPAY ==
[2020-09-21] VITALS (9 sets, daily range): BP systolic 158–178; BP diastolic 73–84; PULSE 48–62; RESP 12–15; O2SAT 91–99
--- NOTE | 2020-09-21 09:51 | ED.NAVMDI ---
HPI - Nausea/Vomiting/Diarrhea General Chief complaint: Nausea/Vomiting/Diarrhea Stated complaint: nauseated going on 2 weeks, throat pain Time Seen by Provider: 09/21/20 09:46 Source: patient Mode of arrival: Ambulatory Limitations: no limitations History of Present Illness HPI Narrative: Patient is a 80-year-old female here for evaluation of nausea and throat pain. She states that it has been going on for the past couple weeks. She states the last time that this happened her primary doctor who is in [place] checked in her thyroid was low so they made adjustments to her medications. She states she is able to swallow. Is not having chest pain. She thinks that eating makes the symptoms somewhat better. No abdominal discomfort. No change in bowel habits. She states that she has had a hiatal hernia in the past and has been checked ?multiple times ?after surgery and she does not have reflux disease. Related Data Home Medications Medication Instructions Recorded Confirmed alprazolam 1 dose PO DIRECTED 11/14/17 12/06/17 atorvastatin 20 mg PO DAILY 11/14/17 12/06/17 levothyroxine 1 tab PO DAILY 11/14/17 12/06/17 theophylline 1 tab PO DAILY 11/14/17 12/06/17 albuterol sulfate 90 mcg/actuation 2 puff INHALATION Q6H PRN 12/06/17 12/06/17 aerosol inhaler fluticasone 500 mcg-salmeterol 50 1 inhalation INHALATION BID 12/06/17 12/06/17 mcg/dose blistr powdr for inhalation meloxicam 15 mg tablet 15 mg PO DAILY 12/06/17 12/06/17 Previous Rx's Medication Instructions Recorded azithromycin 250 mg tablet See Rx Instructions PO .COMPLEX #6 12/06/17 tab ondansetron 4 mg PO Q6H PRN #14 tab 09/21/20 Allergies Allergy/AdvReac Type Severity Reaction Status Date / Time No Known Drug Allergies Allergy Verified 09/21/20 09:27 Review of Systems Constitutional Constitutional: Denies fatigue and Denies headache(s) Eyes Eyes: Denies change in vision ENT Ears, Nose, Mouth, and Throat: Denies headache(s) and Reports sore throat Cardiovascular Cardiovascular: Denies chest pain and Denies dyspnea Respiratory Respiratory: Denies dyspnea Gastrointestinal Gastrointestinal: Denies abdominal pain, Denies change in bowel habits, Reports nausea and Denies vomiting Genitourinary Genitourinary: Denies dysuria Genitourinary: Denies dysuria Musculoskeletal Musculoskeletal: Denies arthralgias and Denies myalgias Integumentary/Breasts Skin/Breast: Denies rash Neurologic Neurologic: Denies behavioral changes and Denies headache(s) Psychiatric Psychiatric: Denies behavioral changes Endocrine Endocrine: Denies fatigue Hematologic/Lymphatic On Anticoagulants: No Allergic/Immunologic Allergic/Immunologic: Denies urticaria Patient History Medical History Hypothyroid Kidney stone Social History Smoking Status: Never smoker alcohol intake: current Smoking Status: Never smoker alcohol intake frequency: 0-2 drinks per day Substance Use Type: does not use Exam Initial Vital Signs Initial Vital Signs: Vital Signs Pulse Rate 52 L 09/21/20 10:22 Respiratory Rate 14 09/21/20 10:22 Pulse Oximetry 96 09/21/20 10:22 Const General: cooperative and comfortable Limitations: mental status not altered HENCT Head: normal to inspection and normocephalic Neck Thyroid: thyroid normal Chest Chest: No tenderness Resp Effort & Inspection: normal respiratory effort Auscultation: clear to auscultation bilaterally Cardio Rate: regular rate Rhythm: regular rhythm GI Inspection: non-distended Palpation: No firm and No tender Skin Lesions: no lesions Rashes: no rashes Neuro General: patient alert and patient awake Cognition: normal cognition Speech: speech normal Extrem General: normal to inspection and capillary refill normal Psych Appearance: grossly normal and well kempt Scores GCS Jackson coma scale eye opening: Spontaneous [place] coma scale verbal response: Orientated [place] coma scale motor response: Obey commands Jackson coma scale total score: 15 Course Orders Ordered: ED Orders 09/21/20 10:08 EKG-12 Lead Stat 09/21/20 10:17 Basic Metabolic Panel Stat Complete Blood Count AUTO DIFF Stat Free T3, Triiodothyronine Free Stat Free T4, Direct Thyroxine Stat Thyroid Stimulating Hormone Stat Discontinued Medications Acetaminophen (Acetaminophen 325 Mg Tablet) 650 mg PO NOW ONE Stop: 09/21/20 11:31 Last Admin: 09/21/20 11:55 Dose: 650 mg Documented by: ANGELIC Ondansetron HCl (Ondansetron 4 Mg Odt) 4 mg PO NOW ONE Stop: 09/21/20 11:31 Last Admin: 09/21/20 11:55 Dose: 4 mg Documented by: ANGELIC Vital Signs Vital signs: Vital Signs - 8 hr 09/21/20 10:30 09/21/20 11:00 09/21/20 11:39 Pulse Rate 51 L 48 L 62 Respiratory Rate 14 13 Blood Pressure 166/74 H 174/75 H Pulse Oximetry 95 96 91 09/21/20 11:41 09/21/20 12:00 09/21/20 12:01 Pulse Rate 60 60 56 L Respiratory Rate 12 13 13 Blood Pressure 178/84 H 167/73 H Pulse Oximetry 99 98 98 09/21/20 12:30 09/21/20 12:31 Pulse Rate 54 L 55 L Respiratory Rate 15 15 Blood Pressure 158/73 H Pulse Oximetry 96 97 MDM - Nausea/Vomiting/Diarrhea Lab Data Attestation: I reviewed the patient's lab results. Result diagrams: 09/21/20 10:17 09/21/20 10:17 Labs: Lab Results 09/21/20 09/21/20 09/21/20 Range/Units 10:17 10:17 10:17 WBC 4.8 (4.5-11.0) X10^3/uL RBC 4.29 (4.0-5.2) X10^6/uL Hgb 12.9 (12.0-16.0) g/dL Hct 38.3 (36-46) % MCV 89.2 (80-100) fL MCH 30.1 (26-34) PG MCHC 33.8 (30-36) % RDW 14.9 H (11.6-14.8) % Plt Count 151 (150-400) X10^3/uL Neut % (Auto) 71.2 (50-75) % Lymph % (Auto) 19.2 L (25-40) % Schley % (Auto) 8.9 (3-14) % Eos % (Auto) 0.0 L (2-4) % Baso % (Auto) 0.7 (0-2) % Neut # (Auto) 3400 (3755-7779) /uL Lymph # (Auto) 900 L (8221-6077) /uL Schley # (Auto) 400 (0-900) /uL Eos # (Auto) 0 (0-450) /uL Baso # (Auto) 0 (0-100) /uL Sodium 137 (137-145) mmol/L Potassium 4.4 (3.4-5.1) mmol/L Chloride 102 (98-107) mmol/L Carbon Dioxide 29 (22-32) mmol/L BUN 20 H (7-17) mg/dL Creatinine 0.76 (0.52-1.04) mg/dL Estimated GFR > 60.0 (>60) mL/min BUN/Creatinine Ratio 26.3 H (6-22) Glucose 110 (80-110) mg/dL Calcium 9.9 (8.4-10.2) mg/dL TSH 1.23 (0.47-4.68) uIU/mL Free T4 1.24 (0.78-2.19) ng/dL Free T3 2.73 L (2.77-5.27) pg/mL Urine Dip Bedside Urine Glucose Negative Bedside Urine Bilirubin - Negative Bedside Urine Ketone - Negative Urine Specific [place] 1.025 Bedside Urine Occult Blood - Negative Bedside Urine pH 6 Bedside Urine Protein - Negative Bedside Urine Urobilinogen - Negative Bedside Urine Nitrite - Negative Bedside Urine Leukocytes - Negative Esterase ECG Data Attestation: I personally reviewed and interpreted this ECG as follows: Prior ECG tracings: not available for review Interpretation: Sinus bradycardia Ventricular rate of 53 Right bundle branch block Normal axis No ST T wave changes MDM Narrative Medical decision making narrative: Patient's labs are unremarkable. She has a benign exam. Her symptoms have been going on for weeks if not longer. Her thyroid today is unremarkable. Recommend no changes that medication currently. She is not in any respiratory distress. Tolerating oral fluids. No indication for emergent surgical intervention. No indication for CT scanning today. Will give her prescription for some nausea medication she it could he is she is also returning back home to [place] in a couple weeks somewhat contact her primary doctor about a referral for General surgery to potentially have an endoscopy. She was given return precautions and follow-up instructions. She expressed understanding and agreement. Discharge Plan Departure Patient Disposition: Home Clinical Impression: Nausea, Sore throat Instructions: DI for Nausea -- Adult Activity Restrictions/Additional Instructions: I recommend that you contact the [facility] at [phone] to help set up and endoscopy. I also recommend that you take the Pepcid/famotidine once a day. Contact your primary provider for a follow-up. Return to the emergency department for any new or worsening symptoms Prescriptions: New ondansetron 4 mg tablet,disintegrating 4 mg PO Q6H PRN (Reason: nausea and vomiting) Qty: 14 RF: 0 No Action albuterol sulfate 90 mcg/actuation HFA aerosol inhaler 2 puff INHALATION Q6H PRNRF: 0 fluticasone propion-salmeterol [Advair Diskus] 500-50 mcg/dose blister with device 1 inhalation INHALATION BID RF: 0 meloxicam 15 mg tablet 15 mg PO DAILY RF: 0 azithromycin 250 mg tablet See Rx Instructions PO .COMPLEX Qty: 6 RF: 0 atorvastatin 20 mg tablet 20 mg PO DAILY RF: 0 theophylline 400 mg tablet extended release 24 hr 1 tab PO DAILY RF: 0 alprazolam 0.5 mg tablet 1 dose PO DIRECTED RF: 0 levothyroxine 125 mcg tablet 1 tab PO DAILY RF: 0 Referrals: Amanda Mary MD [Primary Care Provider] -
[2020-09-21 10:28] LABS: Add Manual Diff / Slide Review NO; Basophils Absolute Auto 0 /uL (0-100); Basophils Percent Auto 0.7 % (0-2); Eosinophils Absolute Auto 0 /uL (0-450); Hematocrit 38.3 % (36-46); Hemoglobin 12.9 g/dL (12.0-16.0); Lymphocytes Absolute Auto 900 /uL (1100-4500); Lymphocytes Percent Auto 19.2 % (25-40); Mean Corpuscular HGB Conc 33.8 % (30-36); Mean Corpuscular Hemoglobin 30.1 PG (26-34); Mean Corpuscular Volume 89.2 fL (80-100); Monocytes Absolute Auto 400 /uL (0-900); Monocytes Percent Auto 8.9 % (3-14); Neutrophils Absolute Auto 3400 /uL (1500-7000); Neutrophils Percent Auto 71.2 % (50-75); Platelet Count 151 X10^3/uL (150-400); Red Blood Cell Count 4.29 X10^6/uL (4.0-5.2); Red Cell Distribution Width 14.9 % (11.6-14.8); White Blood Cell Count 4.8 X10^3/uL (4.5-11.0)
[2020-09-21 10:55] LABS: BUN Creatinine Ratio 26.3 (6-22); Blood Urea Nitrogen 20 mg/dL (7-17); Calcium 9.9 mg/dL (8.4-10.2); Carbon Dioxide 29 mmol/L (22-32); Chloride 102 mmol/L (98-107); Estimated Glomerular Filt Rate > 60.0 mL/min (>60); Glucose 110 mg/dL (80-110); HEMOLYSIS < 15 (0-50); Potassium 4.4 mmol/L (3.4-5.1); Sodium 137 mmol/L (137-145)
[2020-09-21 11:44] LABS: Thyroid Stimulating Hormone 1.23 uIU/mL (0.47-4.68)
[2020-09-21] MEDS: ONDANSETRON 4 MG ODT PO (11:55)
[2020-09-21] MEDS: ACETAMINOPHEN 325 MG TABLET 650 MG PO (11:55)
[2020-09-21 12:36] LABS: Free T3, Triiodothyronine Free 2.73 pg/mL (2.77-5.27); Free T4, Direct Thyroxine 1.24 ng/dL (0.78-2.19)
== END 2020-09-21 12:54 | disposition home or self-care (01) ==
PROVIDERS: Emergency Provider Emergency Medicine; Family Provider Internal Medicine Medical Oncology; PCP Internal Medicine Medical Oncology
DX: R11.0 Nausea (principal); J02.9 Acute pharyngitis, unspecified; R00.1 Bradycardia, unspecified
CPT/HCPCS: 36415; 80048; 81003; 84439; 84443; 84481; 85025; 93005; 99284

== ENCOUNTER → 2020-10-06 10:26 | Outpatient (CLI) | payer MEDICARE, SELFPAY ==
--- NOTE | 2020-10-06 10:27 | DI.US.S_ITS ---
PROCEDURE: US THYROID INDICATIONS: RIGHT NECK PAIN TECHNIQUE: Real-time scanning was performed of the thyroid gland, with image documentation. COMPARISON: None. FINDINGS: No definite thyroid tissue identified. No nodule or abnormal mass identified in the thyroid fossa. No lymphadenopathy identified in the visualized neck. IMPRESSION: No definite thyroid tissue identified. No abnormal mass or nodule. Dictated by: Denise Myers MD, PhD on 10/12/2020 at 11:48 Approved by: Denise Myers MD, PhD on 10/12/2020 at 11:52
--- NOTE | 2020-10-06 10:27 | DI.RAD.S_ITS ---
PROCEDURE: FL BARIUM SWALLOW INDICATIONS: rule out diverticulum, stricture, neoplasm, dysmotility COMPARISON: [facility], CR, XR CHEST 2V, 12/06/2017, 12:33. [facility], CT, KIDNEY/ URETER/BLADDER, 09/19/2015, 12:35. FINDINGS: Function: There is mild esophageal dysmotility. Moderate gastroesophageal reflux is present. There is normal transit of a calibrated barium tablet through the esophagus into the stomach. Morphology: There is a paraesophageal hiatal hernia involving the gastric cardia. Air-contrast images demonstrate normal mucosal morphology. Single contrast views show no esophageal strictures, extrinsic mass effects, or diverticula. Limited images of the stomach demonstrate normal appearance. IMPRESSION: 1. Mild esophageal dysmotility. 2. Moderate gastroesophageal reflux. 3. Moderate-sized paraesophageal hiatal hernia. Dictated by: Sudheer Murillo M.D. on 10/06/2020 at 11:27 Approved by: Sudheer Murillo M.D. on 10/06/2020 at 11:30
== END ==
PROVIDERS: Family Provider Internal Medicine Medical Oncology; Referring Provider Surgery; Visit Provider Surgery
DX: R13.10 Dysphagia, unspecified (principal); K22.4 Dyskinesia of esophagus; K21.9 Gastro-esophageal reflux disease without esophagitis; K44.9 Diaphragmatic hernia without obstruction or gangrene; R11.0 Nausea; M54.2 Cervicalgia; E03.9 Hypothyroidism, unspecified
CPT/HCPCS: 74220; 76536

== ENCOUNTER 2022-12-28 10:05 | Emergency (ER) | payer MEDICARE, OTHER, SELFPAY ==
[2022-12-28 10:11] VITALS: BP 208/93; PULSE 89; RESP 18; TEMP 36.6; O2SAT 97; BMI 34.8
[2022-12-28 10:52] LABS: Add Manual Diff / Slide Review NO; Basophils Absolute Auto 0 /uL (0-100); Basophils Percent Auto 0.7 % (0-2); Eosinophils Absolute Auto 0 /uL (0-450); Hematocrit 40.1 % (36-46); Hemoglobin 13.5 g/dL (12.0-16.0); Lymphocytes Absolute Auto 1000 /uL (1100-4500); Lymphocytes Percent Auto 22.9 % (25-40); Mean Corpuscular HGB Conc 33.5 % (30-36); Mean Corpuscular Hemoglobin 29.7 PG (26-34); Mean Corpuscular Volume 88.6 fL (80-100); Monocytes Absolute Auto 500 /uL (0-900); Neutrophils Absolute Auto 3000 /uL (1500-7000); Neutrophils Percent Auto 66.4 % (50-75); Platelet Count 182 X10^3/uL (150-400); Red Blood Cell Count 4.53 X10^6/uL (4.0-5.2); Red Cell Distribution Width 15.8 % (11.6-14.8); White Blood Cell Count 4.5 X10^3/uL (4.5-11.0)
[2022-12-28 10:58] LABS: Alanine Aminotransferase 27 IU/L (<35); Albumin 4.2 g/dL (3.5-5.0); Albumin Globulin Ratio 1.2 (1.0-2.8); Alkaline Phosphatase 110 U/L (38-126); Aspartate Aminotransferase 40 IU/L (14-36); BUN Creatinine Ratio 19.5 (6-22); Bilirubin Total 0.5 mg/dL (0.2-1.3); Blood Urea Nitrogen 15 mg/dL (7-17); Calcium 9.4 mg/dL (8.4-10.2); Carbon Dioxide 27 mmol/L (22-32); Chloride 103 mmol/L (98-107); Estimated Glomerular Filt Rate > 60 mL/min (>60); Globulin 3.6 g/dL (1.7-4.1); Glucose 54 mg/dL (80-110); HEMOLYSIS 37 (0-50); Lipase 132 U/L (23-300); Sodium 138 mmol/L (137-145); Total Protein 7.8 g/dL (6.3-8.2)
--- NOTE | 2022-12-28 11:32 | DI.CT.S_ITS ---
PROCEDURE: CT ABDOMEN PELVIS W CON INDICATIONS: left side abd pain, hx mesh for hernia TECHNIQUE: After the administration of intravenous contrast, axial sections acquired from the lung bases to the pubic symphysis. Coronal and sagittal reformats were performed. For radiation dose reduction, the following was used: automated exposure control, adjustment of mA and/or kV according to patient size. COMPARISON: [facility], CT, KIDNEY/ URETER/BLADDER, 09/19/2015, 12:35. FINDINGS: Image quality: Excellent. Lung bases: Mild left basilar atelectasis. Right mastectomy changes are partially imaged. Heart: No significant findings. ABDOMEN: Liver: Unremarkable. Gallbladder: Unremarkable. Biliary ducts: Unremarkable. Pancreas: Unremarkable. Spleen: Unremarkable. Adrenal Glands: Unremarkable. Kidneys and Ureters: Status post left nephrectomy. Mildly dilated right renal pelvis to the level of the ureteropelvic junction. No obstructing calculus is seen. The right ureter is not dilated. Stomach and Bowel: Probable postsurgical changes from prior fundoplication. Numerous colonic diverticula are seen. Mild bowel wall thickening is seen at the sigmoid colon with questionable trace pericolonic fat stranding. No signs of small bowel obstruction. Normal appendix. Peritoneum: No abnormal intraperitoneal fluid. No free air. Ventral Wall: No hernias. Abdominal Nodes: No retroperitoneal or mesenteric adenopathy by size criteria. Vessels: Aorta and inferior vena cava are normal in size. Moderate aortic atherosclerotic calcifications. PELVIS: Pelvic Organs: A nonspecific coarse calcification is seen in the left ovary. Right ovary is not well visualized. Bladder: Unremarkable. Pelvic Nodes: No enlarged lymph nodes. Miscellaneous: No hernias are seen. Bones: Multilevel degenerative changes in the spine. No aggressive osseous lesion is seen. IMPRESSION: 1. Colonic diverticulosis with subtle bowel wall thickening in the sigmoid colon and questionable trace pericolonic fat stranding. Findings are equivocal but may represent mild or early acute diverticulitis. No pneumoperitoneum or abscess. 2. Status post left nephrectomy. 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 Approved by: Clark Romo M.D. on 12/28/2022 at 12:33
--- NOTE | 2022-12-28 11:36 | ED.ABDPAIN ---
HPI - Abdominal Pain <Johanna Ferguson PA-C - Last Filed: 12/28/22 14:33> General Chief Complaint: Abdominal Pain Stated Complaint: history of surgical hernia, lt side pain Time Seen by Provider: 12/28/22 10:29 Source: patient Mode of arrival: Ambulatory History of Present Illness HPI narrative: Patient is 82-year-old female who presents with left-sided abdominal pain. She reports a history of a left nephrectomy for unknown reason, with placement of mesh for the subsequent hernia. She had a CT scan in [place] about 2 months ago that showed failure of the mesh but they did not want to operate until she is having pain at that site. She also reports a UTI about 1 month ago that was treated with antibiotics, but reports that the burning feeling never quite went away and she continues to have that. She presents today with left-sided abdominal pain, no fever, no nausea vomiting, reports no diarrhea or constipation. Upon presentation to the ER, her pain is below 5/10 but on my assessment after her triage her pain is 6 to 8/10 and radiates into her back. She denies any hematuria or frequency. She remains afebrile. She has a history of double mastectomy. Related Data Home Medications Medication Instructions Recorded Confirmed alprazolam 0.5 mg tablet 1 dose PO DIRECTED 11/14/17 09/29/20 atorvastatin 20 mg tablet 20 mg PO DAILY 11/14/17 09/29/20 levothyroxine 125 mcg tablet 1 tab PO DAILY 11/14/17 09/29/20 theophylline 400 mg 1 tab PO DAILY 11/14/17 09/29/20 tablet,extended release 24 hr albuterol sulfate 90 mcg/actuation 2 puff inhalation Q6H PRN 12/06/17 09/29/20 aerosol inhaler fluticasone 500 mcg-salmeterol 50 1 inhalation inhalation BID 12/06/17 09/29/20 mcg/dose blistr powdr for inhalation (Advair Diskus) meloxicam 15 mg tablet 15 mg PO DAILY 12/06/17 09/29/20 Previous Rx's Medication Instructions Recorded azithromycin 250 mg tablet See Rx Instructions PO .COMPLEX #6 12/06/17 tabs ondansetron 4 mg disintegrating 4 mg PO Q6H PRN nausea and 09/21/20 tablet vomiting #14 tabs ciprofloxacin HCl 500 mg tablet 500 mg PO BID #14 tabs 12/28/22 metronidazole 500 mg tablet 500 mg PO TID #20 tabs 12/28/22 amoxicillin 875 mg-potassium 1 tab PO BID #20 tabs 12/29/22 clavulanate 125 mg tablet hydrocodone 5 mg-acetaminophen 325 1 tab PO Q6H PRN pain #10 tabs 12/29/22 mg tablet oxycodone 5 mg tablet 5 mg PO Q6H PRN pain #10 tabs 12/30/22 Allergies Allergy/AdvReac Type Severity Reaction Status Date / Time No Known Drug Allergies Allergy Verified 12/30/22 13:35 Review of Systems <Johanna Ferguson PA-C - Last Filed: 12/28/22 14:33> Review of Systems ROS Unobtainable: All systems reviewed & are unremarkable except as noted in HPI and below Patient History <Johanna Ferguson PA-C - Last Filed: 12/28/22 14:33> Medical History Hypothyroid Kidney stone Social History marital status: household members: spouse Smoking Status: Never smoker alcohol intake: current substance use type: does not use Smoking Status: Never smoker alcohol intake frequency: 0-2 drinks per day Substance Use Type: does not use Exam <Johanna Ferguson PA-C - Last Filed: 12/28/22 14:33> Narrative Exam Narrative: GENERAL: 82 year old patient appears stated age. Well-developed patient, in mild distress. NEURO: AOx3. CARDIOVASCULAR: Regular rate and rhythm without murmurs, gallops, or rubs. RESPIRATORY: Clear to auscultation. Breath sounds equal bilaterally. No wheezes, rales, or rhonchi. GASTROINTESTINAL: Abdomen soft, tender over LUQ, no suprapubic tenderness. EXTREMITIES: No edema or joint tenderness. SKIN: No rash or erythema of visible areas Initial Vital Signs Initial Vital Signs: Vital Signs Temperature 97.9 F 12/28/22 10:11 Pulse Rate 89 12/28/22 10:11 Respiratory Rate 18 12/28/22 10:11 Blood Pressure 208/93 H 12/28/22 10:11 Pulse Oximetry 97 12/28/22 10:11 Oxygen Delivery Method Room Air 12/28/22 10:11 <Myranda Ace DO - Last Filed: 12/29/22 07:18> Initial Vital Signs Initial Vital Signs: Vital Signs Temperature 97.9 F 12/28/22 10:11 Pulse Rate 89 12/28/22 10:11 Respiratory Rate 18 12/28/22 10:11 Blood Pressure 208/93 H 12/28/22 10:11 Pulse Oximetry 97 12/28/22 10:11 Oxygen Delivery Method Room Air 12/28/22 10:11 <Brandon Al MD - Last Filed: 01/16/23 21:43> Initial Vital Signs Initial Vital Signs: Vital Signs Temperature 97.9 F 12/28/22 10:11 Pulse Rate 89 12/28/22 10:11 Respiratory Rate 18 12/28/22 10:11 Blood Pressure 208/93 H 12/28/22 10:11 Pulse Oximetry 97 12/28/22 10:11 Oxygen Delivery Method Room Air 12/28/22 10:11 Course <Johanna Ferguson PA-C - Last Filed: 12/28/22 14:33> Orders Ordered: Discontinued Medications Acetaminophen (Acetaminophen 325 Mg Tablet) 975 mg PO NOW ONE Stop: 12/28/22 11:33 Last Admin: 12/28/22 12:06 Dose: 975 mg Documented By: MPO Ciprofloxacin (Ciprofloxacin 250 Mg Tablet) 500 mg PO NOW ONE Stop: 12/28/22 13:56 Last Admin: 12/28/22 14:06 Dose: 500 mg Documented By: CTS Metronidazole (Metronidazole 500 Mg Tablet) 500 mg PO NOW ONE Stop: 12/28/22 13:56 Last Admin: 12/28/22 14:06 Dose: 500 mg Documented By: CTS Consultations Consultation #1: Dr. Romo, radiologist. Asked him to review the CT images in regard to the mesh from previous surgery. 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 Possible mild inflammation at the mesh but no fluid collection. Time: 13:33 Vital Signs Vital signs: Vital Signs - 8 hr 12/28/22 10:11 12/28/22 11:37 12/28/22 14:11 Temperature 97.9 F Pulse Rate 89 61 Respiratory Rate 18 16 Blood Pressure 208/93 H 186/84 H 174/78 H Pulse Oximetry 97 100 Oxygen Delivery Method Room Air Room Air <Myranda Ace DO - Last Filed: 12/29/22 07:18> Orders Ordered: Discontinued Medications Acetaminophen (Acetaminophen 325 Mg Tablet) 975 mg PO NOW ONE Stop: 12/28/22 11:33 Last Admin: 12/28/22 12:06 Dose: 975 mg Documented By: MIKY Ciprofloxacin (Ciprofloxacin 250 Mg Tablet) 500 mg PO NOW ONE Stop: 12/28/22 13:56 Last Admin: 12/28/22 14:06 Dose: 500 mg Documented By: THOMAS Metronidazole (Metronidazole 500 Mg Tablet) 500 mg PO NOW ONE Stop: 12/28/22 13:56 Last Admin: 12/28/22 14:06 Dose: 500 mg Documented By: THOMAS Vital Signs Vital signs: Vital Signs - 8 hr 12/28/22 10:11 12/28/22 11:37 12/28/22 14:11 Temperature 97.9 F Pulse Rate 89 61 Respiratory Rate 18 16 Blood Pressure 208/93 H 186/84 H 174/78 H Pulse Oximetry 97 100 Oxygen Delivery Method Room Air Room Air <Brandon Al MD - Last Filed: 01/16/23 21:43> Orders Ordered: Discontinued Medications Acetaminophen (Acetaminophen 325 Mg Tablet) 975 mg PO NOW ONE Stop: 12/28/22 11:33 Last Admin: 12/28/22 12:06 Dose: 975 mg Documented By: MIKY Ciprofloxacin (Ciprofloxacin 250 Mg Tablet) 500 mg PO NOW ONE Stop: 12/28/22 13:56 Last Admin: 12/28/22 14:06 Dose: 500 mg Documented By: THOMAS Metronidazole (Metronidazole 500 Mg Tablet) 500 mg PO NOW ONE Stop: 12/28/22 13:56 Last Admin: 12/28/22 14:06 Dose: 500 mg Documented By: THOMAS Vital Signs Vital signs: Vital Signs - 8 hr 12/28/22 10:11 12/28/22 11:37 12/28/22 14:11 Temperature 97.9 F Pulse Rate 89 61 Respiratory Rate 18 16 Blood Pressure 208/93 H 186/84 H 174/78 H Pulse Oximetry 97 100 Oxygen Delivery Method Room Air Room Air MDM - Abdominal Pain <Johanna Ferguson PA-C - Last Filed: 12/28/22 14:33> Lab Data 12/28/22 10:40 12/28/22 10:40 Labs: Lab Results 12/28/22 12/28/22 12/28/22 Range/Units 10:34 10:40 10:40 WBC 4.5 (4.5-11.0) X10^3/uL RBC 4.53 (4.0-5.2) X10^6/uL Hgb 13.5 (12.0-16.0) g/dL Hct 40.1 (36-46) % MCV 88.6 (80-100) fL MCH 29.7 (26-34) PG MCHC 33.5 (30-36) % RDW 15.8 H (11.6-14.8) % Plt Count 182 (150-400) X10^3/uL Neut % (Auto) 66.4 (50-75) % Lymph % (Auto) 22.9 L (25-40) % [place] % (Auto) 10.0 (3-14) % Eos % (Auto) 0.0 L (2-4) % Baso % (Auto) 0.7 (0-2) % Neut # (Auto) 3000 (3969-0485) /uL Lymph # (Auto) 1000 L (3458-7588) /uL [place] # (Auto) 500 (0-900) /uL Eos # (Auto) 0 (0-450) /uL Baso # (Auto) 0 (0-100) /uL Sodium 138 (137-145) mmol/L Potassium 4.0 (3.4-5.1) mmol/L Chloride 103 (98-107) mmol/L Carbon Dioxide 27 (22-32) mmol/L BUN 15 (7-17) mg/dL Creatinine 0.77 (0.52-1.04) mg/dL Estimated GFR > 60 (>60) mL/min BUN/Creatinine Ratio 19.5 (6-22) Glucose 54 L (80-110) mg/dL Calcium 9.4 (8.4-10.2) mg/dL Total Bilirubin 0.5 (0.2-1.3) mg/dL AST 40 H (14-36) IU/L ALT 27 (<35) IU/L Alkaline Phosphatase 110 (38-126) U/L Troponin I (0.01-0.034) ng/mL Total Protein 7.8 (6.3-8.2) g/dL Albumin 4.2 (3.5-5.0) g/dL Globulin 3.6 (1.7-4.1) g/dL Albumin/Globulin Ratio 1.2 (1.0-2.8) Lipase 132 (23-300) U/L Urine Color Yellow Urine Appearance Clear Urine pH 6.0 (4.5-8.0) Ur Specific [place] 1.020 (1.000-1.035) Urine Protein Negative (Negative) Urine Glucose (UA) Negative (Negative) g/dL Urine Ketones Negative (NEGATIVE) Urine Occult Blood Negative (Negative) Urine Nitrate Negative (Negative) Urine Bilirubin Negative (NEGATIVE) Urine Urobilinogen 0.2 (0.2) E.U./dL Ur Leukocyte Esterase 1+ H (NEGATIVE) Urine RBC None seen (0-5/HPF) Urine WBC 10-30/hpf H (0-5/HPF) Ur Squamous Epith Cells 1-5 /hpf (0-5/HPF) Urine Bacteria Many (>30) H (None) Ur Culture Indicated? Specimen cultured 12/28/22 Range/Units 10:40 WBC (4.5-11.0) X10^3/uL RBC (4.0-5.2) X10^6/uL Hgb (12.0-16.0) g/dL Hct (36-46) % MCV (80-100) fL MCH (26-34) PG MCHC (30-36) % RDW (11.6-14.8) % Plt Count (150-400) X10^3/uL Neut % (Auto) (50-75) % Lymph % (Auto) (25-40) % [place] % (Auto) (3-14) % Eos % (Auto) (2-4) % Baso % (Auto) (0-2) % Neut # (Auto) (0006-5528) /uL Lymph # (Auto) (1741-5479) /uL [place]hen[place] # (Auto) (0-900) /uL Eos # (Auto) (0-450) /uL Baso # (Auto) (0-100) /uL Sodium (137-145) mmol/L Potassium (3.4-5.1) mmol/L Chloride (98-107) mmol/L Carbon Dioxide (22-32) mmol/L BUN (7-17) mg/dL Creatinine (0.52-1.04) mg/dL Estimated GFR (>60) mL/min BUN/Creatinine Ratio (6-22) Glucose (80-110) mg/dL Calcium (8.4-10.2) mg/dL Total Bilirubin (0.2-1.3) mg/dL AST (14-36) IU/L ALT (<35) IU/L Alkaline Phosphatase (38-126) U/L Troponin I < 0.012 (0.01-0.034) ng/mL Total Protein (6.3-8.2) g/dL Albumin (3.5-5.0) g/dL Globulin (1.7-4.1) g/dL Albumin/Globulin Ratio (1.0-2.8) Lipase (23-300) U/L Urine Color Urine Appearance Urine pH (4.5-8.0) Ur Specific [place] (1.000-1.035) Urine Protein (Negative) Urine Glucose (UA) (Negative) g/dL Urine Ketones (NEGATIVE) Urine Occult Blood (Negative) Urine Nitrate (Negative) Urine Bilirubin (NEGATIVE) Urine Urobilinogen (0.2) E.U./dL Ur Leukocyte Esterase (NEGATIVE) Urine RBC (0-5/HPF) Urine WBC (0-5/HPF) Ur Squamous Epith Cells (0-5/HPF) Urine Bacteria (None) Ur Culture Indicated? Point of care testing: Urine Dip Bedside Urine Glucose Negative Bedside Urine Bilirubin - Negative Bedside Urine Ketone - Negative Urine Specific [place] 1.020 Bedside Urine Occult Blood +/- Bedside Urine pH 6.0 Bedside Urine Protein - Negative Bedside Urine Urobilinogen - Negative Bedside Urine Nitrite + Positive Bedside Urine Leukocytes ++ [address] scan - abdomen/pelvis: Radiologist's Impression: PROCEDURE:? CT ABDOMEN PELVIS W CON ? INDICATIONS:? left side abd pain, hx mesh for hernia ? TECHNIQUE:? After the administration of intravenous contrast, axial sections acquired from the lung bases to the pubic symphysis.? Coronal and sagittal reformats were performed.? For radiation dose reduction, the following was used:? automated exposure control, adjustment of mA and/or kV according to patient size.? ? COMPARISON:? [facility], CT, KIDNEY/ URETER/BLADDER, 09/19/2015, 12:35. ? FINDINGS:? Image quality:? Excellent.? ? Lung bases:? Mild left basilar atelectasis.? Right mastectomy changes are partially imaged. Heart:? No significant findings. ? ABDOMEN: Liver:? Unremarkable.? ? Gallbladder:? Unremarkable. Biliary ducts:? Unremarkable.? ? Pancreas:? Unremarkable.? ? Spleen:? Unremarkable.? ? Adrenal Glands:? Unremarkable.? ? Kidneys and Ureters:? Status post left nephrectomy.? Mildly dilated right renal pelvis to the level of the ureteropelvic junction.? No obstructing calculus is seen.? The right ureter is not dilated. ? Stomach and Bowel:? Probable postsurgical changes from prior fundoplication.? Numerous colonic diverticula are seen.? Mild bowel wall thickening is seen at the sigmoid colon with questionable trace pericolonic fat stranding.? No signs of small bowel obstruction.? Normal appendix. Peritoneum:? No abnormal intraperitoneal fluid.? No free air.? ? Ventral Wall: ? No hernias.? Abdominal Nodes:? No retroperitoneal or mesenteric adenopathy by size criteria.? Vessels:? Aorta and inferior vena cava are normal in size.? Moderate aortic atherosclerotic calcifications. ? PELVIS: Pelvic Organs:? A nonspecific coarse calcification is seen in the left ovary.? Right ovary is not well visualized. Bladder:? Unremarkable.? ? Pelvic Nodes: No enlarged lymph nodes.? Miscellaneous: No hernias are seen. ? ? ? Bones:? Multilevel degenerative changes in the spine.? No aggressive osseous lesion is seen. ? ? IMPRESSION: 1. Colonic diverticulosis with subtle bowel wall thickening in the sigmoid colon and questionable trace pericolonic fat stranding.? Findings are equivocal but may represent mild or early acute diverticulitis.? No pneumoperitoneum or abscess. 2. Status post left nephrectomy.? 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 ? ? ? Approved by: Clark Romo M.D. on 12/28/2022 at 12:33? ? ? ADDENDUM: ? Postsurgical changes are seen from hernia repair at the left lateral abdominal wall with mesh placement.? Small residual fat containing hernia is seen along the posterior margin of the surgical site that does not appear significantly changed in size when compared to the CT from 09/19/2015 at.? There is mild fat stranding in the subcutaneous tissues superficial to the surgical site that could represent postsurgical scarring although mild inflammation or infection cannot be entirely excluded.? No focal fluid collection is seen.? Recommend correlation with clinical findings. ? ? ? Approved by: Clark Romo M.D. on 12/28/2022 at 13:37? ? ECG Data Interpretation: EKG shows sinus bradycardia with a rate of 57, ND interval of 174, QT of 438. MDM Narrative Medical decision making narrative: Multiple etiologies for patient's symptoms considered including, but not limited to: UTI, pyelonephritis, surgical mesh failure or infection, diverticulitis, bowel obstruction. Labs today, including CBC, chemistry, lipase without clinically significant abnormality. Urine consistent with urinary tract infection with positive leuk esterase, positive WBCs and positive bacteria. Pending culture. CT abdomen pelvis completed and consistent with mild diverticulitis, discussed with Dr. Lima's radiologist regarding mesh; no evidence of fluid collection, possible inflammation around the scar tissue. Patient's pain addressed with Tylenol while in ER, she declined stronger pain medication. Her pain continued to be in the left upper quadrant and EKG and troponin were checked to rule out cardiac etiology of pain and were normal. Discussed case with Dr. Al; will discharge home with p.o. antibiotics including metronidazole and ciprofloxacin for presumed diverticulitis and urinary tract infection. She declines stronger pain medication but will take Tylenol at home. Strict return precautions advised and patient states understanding. Advised to seek follow-up with general surgery regarding previous hernia repair and mesh. Patient's symptoms improved over duration of stay with above-stated therapies. Findings and discharge diagnosis discussed with patient/family followed by verbalization of understanding Return precautions discussed with patient/family whom verbalize understanding of diagnosis and plan <Myranda Ace, DO - Last Filed: 12/29/22 07:18> Lab Data Labs: Lab Results 12/28/22 12/28/22 12/28/22 Range/Units 10:34 10:40 10:40 WBC 4.5 (4.5-11.0) X10^3/uL RBC 4.53 (4.0-5.2) X10^6/uL Hgb 13.5 (12.0-16.0) g/dL Hct 40.1 (36-46) % MCV 88.6 (80-100) fL MCH 29.7 (26-34) PG MCHC 33.5 (30-36) % RDW 15.8 H (11.6-14.8) % Plt Count 182 (150-400) X10^3/uL Neut % (Auto) 66.4 (50-75) % Lymph % (Auto) 22.9 L (25-40) % [place]hen[place] % (Auto) 10.0 (3-14) % Eos % (Auto) 0.0 L (2-4) % Baso % (Auto) 0.7 (0-2) % Neut # (Auto) 3000 (2284-4266) /uL Lymph # (Auto) 1000 L (5932-1951) /uL [place] # (Auto) 500 (0-900) /uL Eos # (Auto) 0 (0-450) /uL Baso # (Auto) 0 (0-100) /uL Sodium 138 (137-145) mmol/L Potassium 4.0 (3.4-5.1) mmol/L Chloride 103 (98-107) mmol/L Carbon Dioxide 27 (22-32) mmol/L BUN 15 (7-17) mg/dL Creatinine 0.77 (0.52-1.04) mg/dL Estimated GFR > 60 (>60) mL/min BUN/Creatinine Ratio 19.5 (6-22) Glucose 54 L (80-110) mg/dL Calcium 9.4 (8.4-10.2) mg/dL Total Bilirubin 0.5 (0.2-1.3) mg/dL AST 40 H (14-36) IU/L ALT 27 (<35) IU/L Alkaline Phosphatase 110 (38-126) U/L Troponin I (0.01-0.034) ng/mL Total Protein 7.8 (6.3-8.2) g/dL Albumin 4.2 (3.5-5.0) g/dL Globulin 3.6 (1.7-4.1) g/dL Albumin/Globulin Ratio 1.2 (1.0-2.8) Lipase 132 (23-300) U/L Urine Color Yellow Urine Appearance Clear Urine pH 6.0 (4.5-8.0) Ur Specific [place] 1.020 (1.000-1.035) Urine Protein Negative (Negative) Urine Glucose (UA) Negative (Negative) g/dL Urine Ketones Negative (NEGATIVE) Urine Occult Blood Negative (Negative) Urine Nitrate Negative (Negative) Urine Bilirubin Negative (NEGATIVE) Urine Urobilinogen 0.2 (0.2) E.U./dL Ur Leukocyte Esterase 1+ H (NEGATIVE) Urine RBC None seen (0-5/HPF) Urine WBC 10-30/hpf H (0-5/HPF) Ur Squamous Epith Cells 1-5 /hpf (0-5/HPF) Urine Bacteria Many (>30) H (None) Ur Culture Indicated? Specimen cultured 12/28/22 Range/Units 10:40 WBC (4.5-11.0) X10^3/uL RBC (4.0-5.2) X10^6/uL Hgb (12.0-16.0) g/dL Hct (36-46) % MCV (80-100) fL MCH (26-34) PG MCHC (30-36) % RDW (11.6-14.8) % Plt Count (150-400) X10^3/uL Neut % (Auto) (50-75) % Lymph % (Auto) (25-40) % [place] % (Auto) (3-14) % Eos % (Auto) (2-4) % Baso % (Auto) (0-2) % Neut # (Auto) (7411-6007) /uL Lymph # (Auto) (6924-0470) /uL [place] # (Auto) (0-900) /uL Eos # (Auto) (0-450) /uL Baso # (Auto) (0-100) /uL Sodium (137-145) mmol/L Potassium (3.4-5.1) mmol/L Chloride (98-107) mmol/L Carbon Dioxide (22-32) mmol/L BUN (7-17) mg/dL Creatinine (0.52-1.04) mg/dL Estimated GFR (>60) mL/min BUN/Creatinine Ratio (6-22) Glucose (80-110) mg/dL Calcium (8.4-10.2) mg/dL Total Bilirubin (0.2-1.3) mg/dL AST (14-36) IU/L ALT (<35) IU/L Alkaline Phosphatase (38-126) U/L Troponin I < 0.012 (0.01-0.034) ng/mL Total Protein (6.3-8.2) g/dL Albumin (3.5-5.0) g/dL Globulin (1.7-4.1) g/dL Albumin/Globulin Ratio (1.0-2.8) Lipase (23-300) U/L Urine Color Urine Appearance Urine pH (4.5-8.0) Ur Specific [place] (1.000-1.035) Urine Protein (Negative) Urine Glucose (UA) (Negative) g/dL Urine Ketones (NEGATIVE) Urine Occult Blood (Negative) Urine Nitrate (Negative) Urine Bilirubin (NEGATIVE) Urine Urobilinogen (0.2) E.U./dL Ur Leukocyte Esterase (NEGATIVE) Urine RBC (0-5/HPF) Urine WBC (0-5/HPF) Ur Squamous Epith Cells (0-5/HPF) Urine Bacteria (None) Ur Culture Indicated? Point of care testing: Urine Dip Bedside Urine Glucose Negative Bedside Urine Bilirubin - Negative Bedside Urine Ketone - Negative Urine Specific [place] 1.020 Bedside Urine Occult Blood +/- Bedside Urine pH 6.0 Bedside Urine Protein - Negative Bedside Urine Urobilinogen - Negative Bedside Urine Nitrite + Positive Bedside Urine Leukocytes ++ 125 Esterase MDM Narrative Medical decision making narrative: Multiple etiologies for patient's symptoms considered including, but not limited to: UTI, pyelonephritis, surgical mesh failure or infection, diverticulitis, bowel obstruction. Labs today, including CBC, chemistry, lipase without clinically significant abnormality. Urine consistent with urinary tract infection with positive leuk esterase, positive WBCs and positive bacteria. Pending culture. CT abdomen pelvis completed and consistent with mild diverticulitis, discussed with Dr. Lima's radiologist regarding mesh; no evidence of fluid collection, possible inflammation around the scar tissue. Patient's pain addressed with Tylenol while in ER, she declined stronger pain medication. Her pain continued to be in the left upper quadrant and EKG and troponin were checked to rule out cardiac etiology of pain and were normal. Discussed case with Dr. Al; will discharge home with p.o. antibiotics including metronidazole and ciprofloxacin for presumed diverticulitis and urinary tract infection. She declines stronger pain medication but will take Tylenol at home. Strict return precautions advised and patient states understanding. Advised to seek follow-up with general surgery regarding previous hernia repair and mesh. Patient's symptoms improved over duration of stay with above-stated therapies. Findings and discharge diagnosis discussed with patient/family followed by verbalization of understanding Return precautions discussed with patient/family whom verbalize understanding of diagnosis and plan DIEGO: Patient called pharmacy will not fill antibiotic due to taking theophylline. Also wanting pain meds. Antibiotic changed to augmentin and pain meds given. <Brandon Al MD - Last Filed: 01/16/23 21:43> Lab Data Labs: Lab Results 12/28/22 12/28/22 12/28/22 Range/Units 10:34 10:40 10:40 WBC 4.5 (4.5-11.0) X10^3/uL RBC 4.53 (4.0-5.2) X10^6/uL Hgb 13.5 (12.0-16.0) g/dL Hct 40.1 (36-46) % MCV 88.6 (80-100) fL MCH 29.7 (26-34) PG MCHC 33.5 (30-36) % RDW 15.8 H (11.6-14.8) % Plt Count 182 (150-400) X10^3/uL Neut % (Auto) 66.4 (50-75) % Lymph % (Auto) 22.9 L (25-40) % [place] % (Auto) 10.0 (3-14) % Eos % (Auto) 0.0 L (2-4) % Baso % (Auto) 0.7 (0-2) % Neut # (Auto) 3000 (5746-3702) /uL Lymph # (Auto) 1000 L (1004-2710) /uL [place] # (Auto) 500 (0-900) /uL Eos # (Auto) 0 (0-450) /uL Baso # (Auto) 0 (0-100) /uL Sodium 138 (137-145) mmol/L Potassium 4.0 (3.4-5.1) mmol/L Chloride 103 (98-107) mmol/L Carbon Dioxide 27 (22-32) mmol/L BUN 15 (7-17) mg/dL Creatinine 0.77 (0.52-1.04) mg/dL Estimated GFR > 60 (>60) mL/min BUN/Creatinine Ratio 19.5 (6-22) Glucose 54 L (80-110) mg/dL Calcium 9.4 (8.4-10.2) mg/dL Total Bilirubin 0.5 (0.2-1.3) mg/dL AST 40 H (14-36) IU/L ALT 27 (<35) IU/L Alkaline Phosphatase 110 (38-126) U/L Troponin I (0.01-0.034) ng/mL Total Protein 7.8 (6.3-8.2) g/dL Albumin 4.2 (3.5-5.0) g/dL Globulin 3.6 (1.7-4.1) g/dL Albumin/Globulin Ratio 1.2 (1.0-2.8) Lipase 132 (23-300) U/L Urine Color Yellow Urine Appearance Clear Urine pH 6.0 (4.5-8.0) Ur Specific [place] 1.020 (1.000-1.035) Urine Protein Negative (Negative) Urine Glucose (UA) Negative (Negative) g/dL Urine Ketones Negative (NEGATIVE) Urine Occult Blood Negative (Negative) Urine Nitrate Negative (Negative) Urine Bilirubin Negative (NEGATIVE) Urine Urobilinogen 0.2 (0.2) E.U./dL Ur Leukocyte Esterase 1+ H (NEGATIVE) Urine RBC None seen (0-5/HPF) Urine WBC 10-30/hpf H (0-5/HPF) Ur Squamous Epith Cells 1-5 /hpf (0-5/HPF) Urine Bacteria Many (>30) H (None) Ur Culture Indicated? Specimen cultured 12/28/22 Range/Units 10:40 WBC (4.5-11.0) X10^3/uL RBC (4.0-5.2) X10^6/uL Hgb (12.0-16.0) g/dL Hct (36-46) % MCV (80-100) fL MCH (26-34) PG MCHC (30-36) % RDW (11.6-14.8) % Plt Count (150-400) X10^3/uL Neut % (Auto) (50-75) % Lymph % (Auto) (25-40) % [place] % (Auto) (3-14) % Eos % (Auto) (2-4) % Baso % (Auto) (0-2) % Neut # (Auto) (4259-5458) /uL Lymph # (Auto) (8119-9656) /uL [place] # (Auto) (0-900) /uL Eos # (Auto) (0-450) /uL Baso # (Auto) (0-100) /uL Sodium (137-145) mmol/L Potassium (3.4-5.1) mmol/L Chloride (98-107) mmol/L Carbon Dioxide (22-32) mmol/L BUN (7-17) mg/dL Creatinine (0.52-1.04) mg/dL Estimated GFR (>60) mL/min BUN/Creatinine Ratio (6-22) Glucose (80-110) mg/dL Calcium (8.4-10.2) mg/dL Total Bilirubin (0.2-1.3) mg/dL AST (14-36) IU/L ALT (<35) IU/L Alkaline Phosphatase (38-126) U/L Troponin I < 0.012 (0.01-0.034) ng/mL Total Protein (6.3-8.2) g/dL Albumin (3.5-5.0) g/dL Globulin (1.7-4.1) g/dL Albumin/Globulin Ratio (1.0-2.8) Lipase (23-300) U/L Urine Color Urine Appearance Urine pH (4.5-8.0) Ur Specific [place] (1.000-1.035) Urine Protein (Negative) Urine Glucose (UA) (Negative) g/dL Urine Ketones (NEGATIVE) Urine Occult Blood (Negative) Urine Nitrate (Negative) Urine Bilirubin (NEGATIVE) Urine Urobilinogen (0.2) E.U./dL Ur Leukocyte Esterase (NEGATIVE) Urine RBC (0-5/HPF) Urine WBC (0-5/HPF) Ur Squamous Epith Cells (0-5/HPF) Urine Bacteria (None) Ur Culture Indicated? Point of care testing: Urine Dip Bedside Urine Glucose Negative Bedside Urine Bilirubin - Negative Bedside Urine Ketone - Negative Urine Specific [place] 1.020 Bedside Urine Occult Blood +/- Bedside Urine pH 6.0 Bedside Urine Protein - Negative Bedside Urine Urobilinogen - Negative Bedside Urine Nitrite + Positive Bedside Urine Leukocytes ++ 125 Esterase Discharge Plan Departure Patient Disposition: Home Clinical Impression: Diverticulitis, UTI (urinary tract infection) Instructions: DI for Diverticulitis, DI for Urinary Tract Infection (UTI) Activity Restrictions/Additional Instructions: *You have been diagnosed with diverticulitis and urinary tract infection. You have been prescribed 2 antibiotics for these conditions, please take all the antibiotics even if you are feeling better. If not tolerating a liquid diet or if pain is not controlled, please return to the emergency department. *What to do: *Please continue to take your regular medications as directed. [ x] New medication prescriptions sent to your pharmacy: [ [facility]] [ ] New medication written as a paper prescription [ ] No new medications given *Please follow up with your primary care provider in 2-3 days, call for an appointment. Let them know you were seen in the Emergency Department and that we ask that you be seen in follow up. We will electronically transmit a record of today's note if your PCP is in our system *If you do not have a primary care provider please contact the [facility] Resource line at [phone]. They will ask some questions about your medical history and help get you set up with a doctor in the community. *Return to Emergency Department if you should have any new, worsening or concerning symptoms, such as [fever greater than 101 F, shaking chills, worsening pain, persistent vomiting or other bothersome symptoms] Prescriptions: New metronidazole 500 mg tablet 500 mg PO TID Qty: 20 0RF ciprofloxacin HCl 500 mg tablet 500 mg PO BID Qty: 14 0RF amoxicillin-pot clavulanate 875-125 mg tablet 1 tab PO BID Qty: 20 0RF hydrocodone-acetaminophen 5-325 mg tablet 1 tab PO Q6H PRN (Reason: pain) Qty: 10 0RF No Action albuterol sulfate 90 mcg/actuation HFA aerosol inhaler 2 puff INHALATION Q6H PRN fluticasone propion-salmeterol [Advair Diskus] 500-50 mcg/dose blister with device 1 inhalation INHALATION BID meloxicam 15 mg tablet 15 mg PO DAILY azithromycin 250 mg tablet See Rx Instructions PO .COMPLEX Qty: 6 0RF Dose Instruction: take 500 mg today (day 1), then 250 mg for 4 days (days 2-5) PO Rx Instructions: take 500 mg today (day 1), then 250 mg for 4 days (days 2-5) PO ondansetron 4 mg tablet,disintegrating 4 mg PO Q6H PRN (Reason: nausea and vomiting) Qty: 14 0RF atorvastatin 20 mg tablet 20 mg PO DAILY theophylline 400 mg tablet extended release 24 hr 1 tab PO DAILY alprazolam 0.5 mg tablet 1 dose PO DIRECTED levothyroxine 125 mcg tablet 1 tab PO DAILY oxycodone 5 mg tablet 5 mg PO Q6H PRN (Reason: pain) Qty: 10 0RF Stand Alone Forms: Patient Portal/API <Brandon Al MD - Last Filed: 01/16/23 21:43> Cosign ED Attending Cosignature Attestation: I was immediately available in the department for consultation. This documentation has been reviewed and I agree with assessment and plan. Supervised by Brandon Al MD
[2022-12-28 11:37] VITALS: BP 186/84
[2022-12-28 11:44] LABS: Appearance Urine UA CLEAR; Bilirubin Urine UA NEGATIVE (NEGATIVE); Color Urine UA YELLOW; Glucose Urine UA NEGATIVE (Negative); Ketones Urine UA NEGATIVE (NEGATIVE); Leukocyte Esterase Urine UA 1+ (NEGATIVE); Nitrite Urine UA NEGATIVE (Negative); Occult Blood Urine UA NEGATIVE (Negative); Protein Urine UA NEGATIVE (Negative); Urobilinogen Urine UA 0.2 E.U./dL (0.2)
[2022-12-28 11:51] LABS: Bacteria Urine Many (>30); Culture Indicated Urine Specimen Cultured; RBC Urine None Seen (0-5/HPF); Squamous Epithelial Cell Urine 1-5 /HPF (0-5/HPF); WBC Urine 10-30/HPF (0-5/HPF)
[2022-12-28] MEDS: ACETAMINOPHEN 325 MG TABLET 975 MG PO (12:06)
[2022-12-28] MEDS: metroNIDAZOLE 500 MG TABLET PO (14:06)
[2022-12-28] MEDS: CIPROFLOXACIN 250 MG TABLET 500 MG PO (14:06)
[2022-12-28 14:11] VITALS: BP 174/78; PULSE 61; RESP 16; O2SAT 100
[2022-12-28 14:14] LABS: Troponin I < 0.012 ng/mL (0.01-0.034)
--- NOTE | 2022-12-29 07:12 | PC.NURSE ---
Pt called in this morning stating pharmacy would not fill the cipro due to interaction between theophyline and asking for pain medications. Provider aware, new orders sent to [facility]. Pt is aware of new orders.
== END 2022-12-28 14:46 | disposition home or self-care (01) ==
PROVIDERS: Emergency Medicine; Emergency Provider Physician Assistant; Family Provider Internal Medicine Medical Oncology
DX: K57.92 Diverticulitis of intestine, part unspecified, without perforation or abscess without bleeding (principal); N39.0 Urinary tract infection, site not specified; R10.9 Unspecified abdominal pain; R00.1 Bradycardia, unspecified
CPT/HCPCS: 36415; 74177; 80053; 81001; 81003; 83690; 84484; 85025; 87077; 87086; 87186; 93005; 93010; 99284; Q9967

== ENCOUNTER 2022-12-30 13:07 | Emergency (ER) | payer MEDICARE, OTHER, SELFPAY ==
[2022-12-30] VITALS (12 sets, daily range): BP systolic 149–221; BP diastolic 74–99; PULSE 60–89; RESP 16–20; TEMP 36.4; O2SAT 95–99; BMI 34.8
[2022-12-30 15:06] LABS: Add Manual Diff / Slide Review NO; Basophils Absolute Auto 0 /uL (0-100); Basophils Percent Auto 0.8 % (0-2); Eosinophils Absolute Auto 0 /uL (0-450); Hematocrit 38.8 % (36-46); Lymphocytes Absolute Auto 1100 /uL (1100-4500); Lymphocytes Percent Auto 21.1 % (25-40); Mean Corpuscular HGB Conc 33.5 % (30-36); Mean Corpuscular Hemoglobin 29.6 PG (26-34); Mean Corpuscular Volume 88.5 fL (80-100); Monocytes Absolute Auto 500 /uL (0-900); Monocytes Percent Auto 9.9 % (3-14); Neutrophils Absolute Auto 3600 /uL (1500-7000); Neutrophils Percent Auto 68.2 % (50-75); Platelet Count 180 X10^3/uL (150-400); Red Blood Cell Count 4.39 X10^6/uL (4.0-5.2); Red Cell Distribution Width 15.5 % (11.6-14.8); White Blood Cell Count 5.3 X10^3/uL (4.5-11.0)
[2022-12-30 15:19] LABS: Alanine Aminotransferase 26 IU/L (<35); Albumin Globulin Ratio 1.1 (1.0-2.8); Alkaline Phosphatase 102 U/L (38-126); Aspartate Aminotransferase 34 IU/L (14-36); BUN Creatinine Ratio 18.6 (6-22); Bilirubin Total 0.4 mg/dL (0.2-1.3); Blood Urea Nitrogen 16 mg/dL (7-17); Calcium 9.5 mg/dL (8.4-10.2); Carbon Dioxide 29 mmol/L (22-32); Chloride 102 mmol/L (98-107); Estimated Glomerular Filt Rate > 60 mL/min (>60); Globulin 3.5 g/dL (1.7-4.1); Glucose 100 mg/dL (80-110); HEMOLYSIS < 15 (0-50); Lipase 80 U/L (23-300); Potassium 4.5 mmol/L (3.4-5.1); Sodium 136 mmol/L (137-145); Total Protein 7.5 g/dL (6.3-8.2)
[2022-12-30] MEDS: MORPHINE 2 MG/ML INJ IV (17:43)
--- NOTE | 2022-12-30 17:50 | DI.CT.S_ITS ---
PROCEDURE: CT ABDOMEN PELVIS W CON INDICATIONS: Left flank pain, upper left abd pain recent imaging. TECHNIQUE: After the administration of intravenous contrast, axial sections acquired from the lung bases to the pubic symphysis. Coronal and sagittal reformats were performed. For radiation dose reduction, the following was used: automated exposure control, adjustment of mA and/or kV according to patient size. COMPARISON: [facility], CT, CT ABDOMEN PELVIS W CON, 12/28/2022, 11:46. FINDINGS: Image quality: Excellent. Lung bases: Fat containing right posterior hemidiaphragmatic hernia is present. Heart: No significant findings. ABDOMEN: Liver: Hepatic contour is nodular, suggestive of cirrhosis. No focal mass. Gallbladder: High density material within the gallbladder lumen is present. Biliary ducts: Unremarkable. Pancreas: Unremarkable. Spleen: Unremarkable. Adrenal Glands: Unremarkable. Kidneys and Ureters: Left kidney is surgically absent. Multiple probable right parapelvic renal cysts are present, as before. Stomach and Bowel: Patient appears to be status post knee seen fundoplication. Stomach, small bowel loops, and colon are unremarkable. Diverticulosis of the descending and sigmoid colon. No evidence of acute diverticulitis. Peritoneum: No abnormal intraperitoneal fluid. No free air. Ventral Wall: Small left flank fat containing hiatal hernia is unchanged. Abdominal Nodes: No retroperitoneal or mesenteric adenopathy by size criteria. Vessels: Aorta and inferior vena cava are normal in size. PELVIS: Pelvic Organs: Unremarkable. Bladder: Unremarkable. Pelvic Nodes: No enlarged lymph nodes. Miscellaneous: No hernias are seen. Bones: Unremarkable. IMPRESSION: 1. No significant change compared to imaging completed 48 hours prior. 2. Cirrhosis. 3. Gallbladder sludge versus calculi. 4. No change in small left flank fat containing hernia. 5. Postsurgical sequelae. Dictated by: Safia Washington M.D. on 12/30/2022 at 18:13 Approved by: Safia Washington M.D. on 12/30/2022 at 18:15
--- NOTE | 2022-12-30 18:27 | ED.ABDPAIN ---
HPI - Abdominal Pain General Chief Complaint: Abdominal Pain Stated Complaint: lt flank pain/here T-2/getting worse Time Seen by Provider: 12/30/22 16:59 Source: patient Mode of arrival: Ambulatory History of Present Illness HPI narrative: This is an 82-year-old female on theophylline for asthma come albuterol and Advair, EKG shows hypothyroidism, dyslipidemia. Patient comes in with complaint of left flank pain. Patient states it is upper left flank and a little bit towards the front. She states has been getting worse for the past 2 days. She denies fevers or chills. No nausea or vomiting. She states not lower abdominal pain. She states no dysuria urgency or frequency currently no diarrhea constipation. She thinks that it might be her mesh on her left side. Patient states she was lifting some grandchildren that were too heavy, she would forgot she is only supposed to lift 5 lb at a time. She notes that when she does live more than 5 lb she often gets some irritation. Patient states the mesh was placed several years ago in [place]. Patient was seen here 2 days ago was found to have UTI and her urine culture is positive for gram-negative bacilli. She states she has been positive for E coli in the past. She was also found to have little bit of diverticulitis. She states this does not feel similar to when she is had diverticulitis in the past. She had Cipro and Flagyl called in, pharmacist had held Cipro secondary to theophylline and was changed to Augmentin but she is been continuing with the Flagyl. Patient has had a nephrectomy on the left secondary to benign renal mass that had been suspected to be malignant but was negative. No known drug allergies. Patient is returned in [place] in beginning of February. Related Data Home Medications Medication Instructions Recorded Confirmed alprazolam 0.5 mg tablet 1 dose PO DIRECTED 11/14/17 09/29/20 atorvastatin 20 mg tablet 20 mg PO DAILY 11/14/17 09/29/20 levothyroxine 125 mcg tablet 1 tab PO DAILY 11/14/17 09/29/20 theophylline 400 mg 1 tab PO DAILY 11/14/17 09/29/20 tablet,extended release 24 hr albuterol sulfate 90 mcg/actuation 2 puff inhalation Q6H PRN 12/06/17 09/29/20 aerosol inhaler fluticasone 500 mcg-salmeterol 50 1 inhalation inhalation BID 12/06/17 09/29/20 mcg/dose blistr powdr for inhalation (Advair Diskus) meloxicam 15 mg tablet 15 mg PO DAILY 12/06/17 09/29/20 Previous Rx's Medication Instructions Recorded azithromycin 250 mg tablet See Rx Instructions PO .COMPLEX #6 12/06/17 tabs ondansetron 4 mg disintegrating 4 mg PO Q6H PRN nausea and 09/21/20 tablet vomiting #14 tabs ciprofloxacin HCl 500 mg tablet 500 mg PO BID #14 tabs 12/28/22 metronidazole 500 mg tablet 500 mg PO TID #20 tabs 12/28/22 amoxicillin 875 mg-potassium 1 tab PO BID #20 tabs 12/29/22 clavulanate 125 mg tablet hydrocodone 5 mg-acetaminophen 325 1 tab PO Q6H PRN pain #10 tabs 12/29/22 mg tablet oxycodone 5 mg tablet 5 mg PO Q6H PRN pain #10 tabs 12/30/22 Allergies Allergy/AdvReac Type Severity Reaction Status Date / Time No Known Drug Allergies Allergy Verified 12/30/22 13:35 Review of Systems Review of Systems ROS Unobtainable: All systems reviewed & are unremarkable except as noted in HPI and below Patient History Medical History Hypothyroid Kidney stone Social History marital status: household members: spouse Smoking Status: Never smoker alcohol intake: current substance use type: does not use Smoking Status: Never smoker alcohol intake frequency: 0-2 drinks per day Substance Use Type: does not use Exam Narrative Exam Narrative: GENERAL: Alert and oriented x three, elderly female in mild distress. HEENT: Head normocephalic, atraumatic, EOMI, pupils reactive, face symmetric, moist mucous membranes NECK: Supple, full range of motion CARDIOVASCULAR: Regular rate and rhythm without murmurs, rubs or gallops. RESPIRATORY: Breath sounds equal bilaterally, no wheezes rales or rhonchi. ABDOMEN: Soft, nontender. Normoactive bowel sounds all 4 quadrants. No guarding or rebound, rigidity, no mass, patient is slightly more distended on the left flank than the right. No easily palpable hernia appreciated. : No CVA tenderness BACK: No cervical, thoracic or lumbar vertebral point tenderness. Patient has normal range of motion. EXTREMITIES: Normal range of motion, no clubbing or edema. Neurovascularly intact NEUROLOGICAL: Cranial nerves II through XII grossly intact. Moving all extremities SKIN: Warm, dry, no petechiae, no rashes or lesions, no erythema, vesicles or other skin changes appreciated. Initial Vital Signs Initial Vital Signs: Vital Signs Temperature 97.6 F 12/30/22 13:26 Pulse Rate 79 12/30/22 13:26 Respiratory Rate 20 12/30/22 13:26 Blood Pressure 149/74 H 12/30/22 13:26 Pulse Oximetry 98 12/30/22 13:26 Oxygen Delivery Method Room Air 12/30/22 13:26 Course Orders Ordered: ED Orders 12/30/22 14:53 Complete Blood Count AUTO DIFF Stat Comprehensive Metabolic Panel Stat Lipase Stat 12/30/22 15:54 Urine Culture Stat Urine Microscopic Stat 12/30/22 16:45 EKG-12 Lead Stat 12/30/22 17:50 CT abdomen pelvis w con Stat 12/30/22 19:01 Urine Culture Stat Ondansetron HCl (Ondansetron 4 Mg Odt) 4 mg PO NOW PRN PRN Reason: Nausea And Vomiting Ondansetron HCl (Ondansetron 4 Mg/2 Ml Inj) 4 mg IV NOW PRN PRN Reason: Nausea And Vomiting Discontinued Medications Morphine Sulfate (Morphine 2 Mg/Ml Inj) 2 mg IV NOW ONE Stop: 12/30/22 17:36 Last Admin: 12/30/22 17:43 Dose: 2 mg Documented By: NATHEN Oxycodone HCl (Oxycodone Ir 5 Mg Tablet) 5 mg PO NOW ONE Stop: 12/30/22 18:51 Last Admin: 12/30/22 19:22 Dose: 5 mg Documented By: NATHEN Vital Signs Vital signs: Vital Signs - 8 hr 12/30/22 13:26 12/30/22 16:37 12/30/22 16:37 Temperature 97.6 F Pulse Rate 79 67 Respiratory Rate 20 16 Blood Pressure 149/74 H 191/85 H Pulse Oximetry 98 99 Oxygen Delivery Method Room Air 12/30/22 17:00 12/30/22 17:30 12/30/22 19:27 Temperature Pulse Rate 73 65 89 Respiratory Rate Blood Pressure 221/92 H Pulse Oximetry 99 98 97 Oxygen Delivery Method Room Air MDM - Abdominal Pain Lab Data 12/30/22 14:53 12/30/22 14:53 Labs: Lab Results 12/30/22 12/30/22 12/30/22 Range/Units 14:53 14:53 15:54 WBC 5.3 (4.5-11.0) X10^3/uL RBC 4.39 (4.0-5.2) X10^6/uL Hgb 13.0 (12.0-16.0) g/dL Hct 38.8 (36-46) % MCV 88.5 (80-100) fL MCH 29.6 (26-34) PG MCHC 33.5 (30-36) % RDW 15.5 H (11.6-14.8) % Plt Count 180 (150-400) X10^3/uL Neut % (Auto) 68.2 (50-75) % Lymph % (Auto) 21.1 L (25-40) % [place] % (Auto) 9.9 (3-14) % Eos % (Auto) 0.0 L (2-4) % Baso % (Auto) 0.8 (0-2) % Neut # (Auto) 3600 (5076-4830) /uL Lymph # (Auto) 1100 (9956-4583) /uL [place] # (Auto) 500 (0-900) /uL Eos # (Auto) 0 (0-450) /uL Baso # (Auto) 0 (0-100) /uL Sodium 136 L (137-145) mmol/L Potassium 4.5 (3.4-5.1) mmol/L Chloride 102 (98-107) mmol/L Carbon Dioxide 29 (22-32) mmol/L BUN 16 (7-17) mg/dL Creatinine 0.86 (0.52-1.04) mg/dL Estimated GFR > 60 (>60) mL/min BUN/Creatinine Ratio 18.6 (6-22) Glucose 100 (80-110) mg/dL Calcium 9.5 (8.4-10.2) mg/dL Total Bilirubin 0.4 (0.2-1.3) mg/dL AST 34 (14-36) IU/L ALT 26 (<35) IU/L Alkaline Phosphatase 102 (38-126) U/L Total Protein 7.5 (6.3-8.2) g/dL Albumin 4.0 (3.5-5.0) g/dL Globulin 3.5 (1.7-4.1) g/dL Albumin/Globulin Ratio 1.1 (1.0-2.8) Lipase 80 (23-300) U/L Urine RBC 0-1/hpf (0-5/HPF) Urine WBC 5-10/hpf H (0-5/HPF) Ur Squamous Epith Cells 1-5 /hpf (0-5/HPF) Urine Bacteria Occasional (0-1) (None) Urine Mucus 1+ H (Negative) Ur Culture Indicated? Specimen cultured Point of care testing: Urine Dip Bedside Urine Glucose Negative Bedside Urine Bilirubin - Negative Bedside Urine Ketone ++ 40 Urine Specific [place] 1.020 Bedside Urine Occult Blood - Negative Bedside Urine pH 6 Bedside Urine Protein - Negative Bedside Urine Urobilinogen - Negative Bedside Urine Nitrite - Negative Bedside Urine Leukocytes +/- [address] scan - abdomen/pelvis: Radiologist's Impression: [address] [address] [address] Scan Report Signed Patient: Tracy Andersen MR#: [id number] : 1940 Acct:[id number] Age/Sex: 82 / F Date of Service: 12/30/22 Loc: ED Accession Number: [id number] ?? Procedure: CT abdomen pelvis w con Ordering Provider: Kaur Still D.O. PROCEDURE:? CT ABDOMEN PELVIS W CON ? INDICATIONS:? Left flank pain, upper left abd pain recent imaging. ? TECHNIQUE:? After the administration of intravenous contrast, axial sections acquired from the lung bases to the pubic symphysis.? Coronal and sagittal reformats were performed.? For radiation dose reduction, the following was used:? automated exposure control, adjustment of mA and/or kV according to patient size.? ? COMPARISON:? [facility], CT, CT ABDOMEN PELVIS W CON, 12/28/2022, 11:46. ? FINDINGS:? Image quality:? Excellent.? ? Lung bases:? Fat containing right posterior hemidiaphragmatic hernia is present. Heart:? No significant findings. ? ABDOMEN: Liver:? Hepatic contour is nodular, suggestive of cirrhosis.? No focal mass. Gallbladder:? High density material within the gallbladder lumen is present.? ? Biliary ducts:? Unremarkable.? ? Pancreas:? Unremarkable.? ? Spleen:? Unremarkable.? ? Adrenal Glands:? Unremarkable.? ? Kidneys and Ureters:? Left kidney is surgically absent.? Multiple probable right parapelvic renal cysts are present, as before. ? Stomach and Bowel:? Patient appears to be status post knee seen fundoplication.? Stomach, small bowel loops, and colon are unremarkable.? Diverticulosis of the descending and sigmoid colon.? No evidence of acute diverticulitis. Peritoneum:? No abnormal intraperitoneal fluid.? No free air.? ? Ventral Wall: ? Small left flank fat containing hiatal hernia is unchanged. Abdominal Nodes:? No retroperitoneal or mesenteric adenopathy by size criteria.? Vessels:? Aorta and inferior vena cava are normal in size.? ? PELVIS: Pelvic Organs:? Unremarkable.? ? Bladder:? Unremarkable.? ? Pelvic Nodes: No enlarged lymph nodes.? Miscellaneous: No hernias are seen. ? ? ? Bones:? Unremarkable.? IMPRESSION:? 1. No significant change compared to imaging completed 48 hours prior. 2. Cirrhosis. 3. Gallbladder sludge versus calculi. 4. No change in small left flank fat containing hernia. 5. Postsurgical sequelae.? ? ? Dictated by: Safia Washington M.D. on 12/30/2022 at 18:13 ? ? Approved by: Safia Washington M.D. on 12/30/2022 at 18:15?? ECG Data Attestation: I personally reviewed and interpreted this ECG as follows: Interpretation: Sinus rhythm rate of 69 IL 170 QRS of 118 QTC 456. Incomplete right bundle-branch, left anterior fascicular block. MDM Narrative Medical decision making narrative: 82-year-old female who presents with left flank pain she states it is her upper left flank and does not feel lower like her diverticulitis or UTI. She has had a left nephrectomy making pyelonephritis unlikely on the left side. She had CT imaging 2 days prior but states her pain is increased, she is afebrile no signs of sepsis. Her labs are overall reassuring. Repeat imaging shows a fat containing left flank hernia. This is consistent patient states she feels like there is a pulling and worse with movement and got worse after she was lifting her grandchildren when she forgot to keep her weight lift limit of 5 lb. She has been taking antibiotics she is had 4 doses of Augmentin. Her preop culture is positive but sensitivities have not resulted. Discussed with patient to continue her antibiotic, she can hold Flagyl at this time as she is covered for her diverticulitis with the Augmentin. Cipro had been stopped because of her theophylline. Patient will give a short course of pain medication, decreased activity, referral to General surgery with return precautions. Discharge Plan Departure Patient Disposition: Home Clinical Impression: Hernia, Acute UTI Activity Restrictions/Additional Instructions: You do have a small left flank fat containing hernia. Please follow up with General surgery. Call Monday morning for an appointment. Continue to lift no more than 5 lb at a time. Your urine does show bacteria growing, sensitivities pending. Continue Augmentin as prescribed. You may stop the Flagyl currently. You may take Tylenol up to a 1000 mg every 6 hours as needed pain. You may take oxycodone 1-2 tablets every 6 hours as needed for pain. This medication can make you sleepy do not drive, perform hazardous activities or make any major decisions while taking it. This medication will make you constipated please take a stool softener once to twice daily until stools are soft and regular. Prescription sent to [facility] in [place]. Please return for fevers worsening abdominal back or flank pain, vomiting, if you are not having bowel movements or passing gas, if you are having black or bloody stools or other new or concerning changes. Prescriptions: New oxycodone 5 mg tablet 5 mg PO Q6H PRN (Reason: pain) Qty: 10 0RF No Action albuterol sulfate 90 mcg/actuation HFA aerosol inhaler 2 puff INHALATION Q6H PRN fluticasone propion-salmeterol [Advair Diskus] 500-50 mcg/dose blister with device 1 inhalation INHALATION BID meloxicam 15 mg tablet 15 mg PO DAILY azithromycin 250 mg tablet See Rx Instructions PO .COMPLEX Qty: 6 0RF Dose Instruction: take 500 mg today (day 1), then 250 mg for 4 days (days 2-5) PO Rx Instructions: take 500 mg today (day 1), then 250 mg for 4 days (days 2-5) PO ondansetron 4 mg tablet,disintegrating 4 mg PO Q6H PRN (Reason: nausea and vomiting) Qty: 14 0RF atorvastatin 20 mg tablet 20 mg PO DAILY theophylline 400 mg tablet extended release 24 hr 1 tab PO DAILY alprazolam 0.5 mg tablet 1 dose PO DIRECTED levothyroxine 125 mcg tablet 1 tab PO DAILY metronidazole 500 mg tablet 500 mg PO TID Qty: 20 0RF ciprofloxacin HCl 500 mg tablet 500 mg PO BID Qty: 14 0RF amoxicillin-pot clavulanate 875-125 mg tablet 1 tab PO BID Qty: 20 0RF hydrocodone-acetaminophen 5-325 mg tablet 1 tab PO Q6H PRN (Reason: pain) Qty: 10 0RF Referrals: Josette Tomlinson MD [Physician] - Stand Alone Forms: Patient Portal/API
[2022-12-30 18:47] LABS: Bacteria Urine Occasional (0-1); RBC Urine 0-1/HPF (0-5/HPF); Squamous Epithelial Cell Urine 1-5 /HPF (0-5/HPF); WBC Urine 5-10/HPF (0-5/HPF)
[2022-12-30 18:48] LABS: Culture Indicated Urine Specimen Cultured; Mucus Urine 1+ (Negative)
[2022-12-30] MEDS: OXYCODONE IR 5 MG TABLET PO (19:22)
== END 2022-12-30 19:42 | disposition home or self-care (01) ==
PROVIDERS: Emergency Provider Emergency Medicine; Family Provider Internal Medicine Medical Oncology
DX: K46.9 Unspecified abdominal hernia without obstruction or gangrene (principal); N39.0 Urinary tract infection, site not specified; Z79.899 Other long term (current) drug therapy
CPT/HCPCS: 36415; 74177; 80053; 81003; 81015; 83690; 85025; 87086; 93005; 93010; 96374; 99284; J2270